=== PATIENT | male | born 1945 | race Caucasian/White ===

== ENCOUNTER 2018-10-27 05:37 | Day surgery (SDC) | payer MEDICARE ==
[2018-10-26 11:23] VITALS: BMI 36.2
[2018-10-27 06:46] LABS: Anion Gap 14 mmol/L (10-20); BUN (Urea Nitrogen) 16 mg/dL (8.4-25.7); Calc. Creatinine Clearance 74 mL/min (70-130); Calcium 10.1 mg/dL (7.8-10.44); Carbon Dioxide 24 mmol/L (23-31); Chloride 106 mmol/L (98-107); Estimated GFR-MDRD 47; Glucose 140 mg/dL (83-110); Potassium 4.1 mmol/L (3.5-5.1); Sodium 140 mmol/L (136-145)
[2018-10-27] MEDS ORDERED: Midazolam HCl 2 mg/2 ml Vial ONE (07:26)
[2018-10-27] MEDS ORDERED: hydrALAZINE 20 MG/ML VIAL ONE (07:26)
[2018-10-27] MEDS ORDERED: Fentanyl 100 MCG/2 ML VIAL ONE (07:26)
[2018-10-27] MEDS ORDERED: Heparin 10,000 UNITS/1 ML VIAL ONE (08:14)
[2018-10-27] MEDS ORDERED: Iopamidol 370 76% 100 ML VIAL ONE (10:03)
== END 2018-10-27 11:26 | disposition home or self-care (01) ==
LOC: CCL 05:37
PROVIDERS: ATTEND Internal Medicine Cardiovascular Disease
PROC: 4A023N7 Measurement of Cardiac Sampling and Pressure, Left Heart, Percutaneous Approach (ICD-10-PCS; principal; 2018-10-27)
PROC: B2111ZZ Fluoroscopy of Multiple Coronary Arteries using Low Osmolar Contrast (ICD-10-PCS; 2018-10-27)
DX: I25.10 Atherosclerotic heart disease of native coronary artery without angina pectoris (principal); I71.4 Abdominal aortic aneurysm, without rupture; I71.2 Thoracic aortic aneurysm, without rupture; I51.89 Other ill-defined heart diseases; I42.0 Dilated cardiomyopathy; E78.5 Hyperlipidemia, unspecified; J44.9 Chronic obstructive pulmonary disease, unspecified; I10 Essential (primary) hypertension; Z87.891 Personal history of nicotine dependence; Z79.02 Long term (current) use of antithrombotics/antiplatelets; Z79.899 Other long term (current) drug therapy
CPT/HCPCS: 75625; 80048; 93458; 99152; 99153; C1769; J0360; J1644; J2250; J3010; Q9967

== ENCOUNTER 2018-11-01 12:14 | Outpatient (CLI) | payer MEDICARE ==
[~2018-11-01 12:14] MED LIST: ISOVUE-370 76%-LOCM 1 ML ONE
--- NOTE | 2018-11-01 14:41 | CT ---
CT CHEST WITHOUT CONTRAST CT ANGIOGRAM OF THE CHEST WITH CONTRAST: HISTORY: Aortic aneurysm. COMPARISON: Chest radiograph 05/19/2018. FINDINGS: Initially, a CT of the chest was performed without contrast. Subsequently, a CT angiogram of the craig st was performed after the intravenous administration of contrast. The ascending aorta is without an eurysmal dilatation. The transverse aorta is without aneurysmal dilatation. No intracranial hematom a is appreciated. The descending thoracic aorta measures up to 3.7 cm at the level of T10. Just above the diaphragmati c hiatus at T11, there is a focal sacular aneurysm containing plaque with the aorta measuring 4.6 cm. There is extensive plaque throughout the descending thoracic aorta with ulcerations and plaque. No dissection is appreciation. The celiac trunk and superior mesenteric arteries are patent. There is large volume plaque of the great vessels with 50% narrowing of the origin of the left subcla vian artery due to soft plaque. There is dilatation of the proximal 2 cm of the subclavian artery up to 1.8 cm from 2 cm due to aneurysmal dilatation of the subclavian artery. The pulmonary arteries are not dilated. There are calcified left hilar lymph nodes. No pericardial effusion. There is cholelithiasis. The adrenal glands are unremarkable. Sternum and manubrium are intact. No thoracic spine compression fracture. There is a large calcified granuloma along the left major fissure. Moderate emphysematous changes. No suspicious pulmonary nodule. No displaced rib fracture. IMPRESSION: 1. Extensive atherosclerotic plaque throughout the aorta with aneurysmal dilatation of the distal th oracic aorta as described. 2. Cholelithiasis. 3. 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 4. Moderate emphysematous changes. POS: MILTON
== END 2018-11-01 12:15 | disposition home or self-care (01) ==
LOC: BICCT 12:14
PROVIDERS: ATTEND Internal Medicine Cardiovascular Disease
DX: I71.2 Thoracic aortic aneurysm, without rupture (principal); J43.9 Emphysema, unspecified; I70.8 Atherosclerosis of other arteries; I72.8 Aneurysm of other specified arteries
CPT/HCPCS: 71275; Q9966

== ENCOUNTER 2018-11-28 00:15 | Outpatient (CLI) | payer MEDICARE ==
--- NOTE | 2018-11-29 21:14 | EKG ---
Test Reason : Blood Pressure : / mmHG Vent. Rate : 092 BPM Atrial Rate : 092 BPM P-R Int : 150 ms QRS Dur : 124 ms QT Int : 376 ms P-R-T Axes : 050 046 101 degrees QTc Int : 464 ms Normal sinus rhythm with sinus arrhythmia Left ventricular hypertrophy with QRS widening Inferior infarct , age undetermined Abnormal ECG No previous ECGs available Confirmed by REN REID, DR. Rasheed ([id number]) on 11/29/2018 9:13:56 PM Referred By: SAM Confirmed By:DR. Kathya MCCLURE MD
== END 2018-11-28 00:16 | disposition home or self-care (01) ==
LOC: LABBT 00:15
PROVIDERS: ATTEND Thoracic Surgery (Cardiothoracic Vascular Surgery)
DX: Z01.818 Encounter for other preprocedural examination (principal); I25.10 Atherosclerotic heart disease of native coronary artery without angina pectoris
CPT/HCPCS: 93005; 93010

== ENCOUNTER 2018-11-28 13:15 | Inpatient (IN) | payer MEDICARE ==
[2018-11-28 14:29] LABS: Hemoglobin 14.5 g/dL (14.0-18.0); Mean Corpuscular HGB CONC 33.2 g/dL (32.0-36.0); Mean Corpuscular Volume 90.4 fL (78.0-98.0); Mean Platelet Volume 7.5 fL (7.4-10.4); Platelet Count 233 thou/uL (130-400); RBC Distribution Width 12.7 % (11.5-14.5); Red Blood Cell (RBC) Count 4.84 mill/uL (4.70-6.10); White Blood Cell (WBC) Count 9.2 thou/uL (4.8-10.8)
[2018-11-28 14:39] LABS: Anion Gap 13 mmol/L (10-20); BUN (Urea Nitrogen) 14 mg/dL (8.4-25.7); Calc. Creatinine Clearance 0 mL/min (70-130); Calcium 9.9 mg/dL (7.8-10.44); Carbon Dioxide 23 mmol/L (23-31); Chloride 106 mmol/L (98-107); Estimated GFR-MDRD 43; Glucose 105 mg/dL (83-110); Potassium 4.1 mmol/L (3.5-5.1); Sodium 138 mmol/L (136-145)
[2018-11-30] MEDS ORDERED: Bupivacaine HCl 0.5%/Epinephrine 1:200,000/PF 30 ml Vial ONE ×2 (08:28→08:31)
[2018-11-30] MEDS ORDERED: Dexamethasone 4 mg/ml Vial ONE (08:28)
[2018-11-30] MEDS ORDERED: Dexamethasone 20 MG/5 ML VIAL ONE ×2 (08:31→16:05)
[2018-11-30] MEDS ORDERED: Albumin 5% 500 ML ONE (08:31)
[2018-11-30] MEDS ORDERED: Heparin 10,000 UNITS/1 ML VIAL 30,000 UNITS in Sodium Chloride 0.9% 1,000 ML FS SCH (08:45)
[2018-11-30] MEDS ORDERED: Fentanyl 250 MCG/5 ML VIAL ONE (09:42)
[2018-11-30] MEDS ORDERED: Midazolam HCl 5 mg/5 ml Vial ONE (09:42)
[2018-11-30] MEDS ORDERED: PHENYLEPHRINE-NS 100 MCG/ML 10 ML SYRINGE ONE ×2 (12:05→13:48)
[2018-11-30] MEDS ORDERED: Insulin Regular 300 UNITS/3 ML VIAL ONE (13:35)
[2018-11-30] MEDS ORDERED: Post-Op Insulin Drip Protocol IVPB ONE (14:12)
[2018-11-30] MEDS ORDERED: Hetastarch 6% 500 ML 500 ML IVPB PRN (14:12)
[2018-11-30] MEDS ORDERED: DOPamine 400 MG/D5W 250 ML 250 ML IVPB PRN (14:12)
[2018-11-30] MEDS ORDERED: Bisacodyl 10 MG SUPP PR PRN (14:12)
[2018-11-30] MEDS ORDERED: Nitroglycerin 50 MG/250 ML BOT 250 ML IVPB PRN (14:12)
[2018-11-30] MEDS ORDERED: HYDROcodone/Acetaminophen 5/325 mg Tablet PO PRN (14:12)
[2018-11-30] MEDS ORDERED: Morphine 4 MG/ML VIAL SLOW IVP PRN (14:12)
[2018-11-30] MEDS ORDERED: Acetaminophen 325 MG TAB PO PRN (14:12)
[2018-11-30] MEDS ORDERED: Mag-Al 1200 mg/1200 mg/30 ML UDCUP PO PRN (14:12)
[2018-11-30] MEDS ORDERED: Bisacodyl 5 MG TAB PO PRN (14:12)
[2018-11-30] MEDS ORDERED: Norepinephrine 8 MG/0.9% NS 250 ML IVPB PRN (14:12)
[2018-11-30] MEDS ORDERED: niCARdipine HCl 25 MG in Sodium Chloride 0.9% 250 ML 240 ML IVPB PRN (14:12)
[2018-11-30] MEDS ORDERED: hydrALAZINE 20 MG/ML VIAL SLOW IVP PRN (14:12)
[2018-11-30] MEDS ORDERED: Potassium Chloride 20 MEQ/100 ML PREMIX BAG IVPB PRN (14:12)
[2018-11-30] MEDS ORDERED: Fentanyl 100 MCG/2 ML VIAL SLOW IVP PRN ×2 (14:12)
[2018-11-30] MEDS ORDERED: Guaifenesin DM 100-10/5 ML UDCUP PO PRN (14:12)
[2018-11-30] MEDS ORDERED: Dextrose 5% in Water 1,000 ML IV PRN (14:33)
[2018-11-30] MEDS ORDERED: Dextrose 50% Abboject 50 ML SYRINGE SLOW IVP PRN (14:33)
[2018-11-30] MEDS ORDERED: HUMULIN R 100 UNITS in Sodium Chloride 0.9% 100 ML IVPB SCH (14:33)
[2018-11-30] MEDS: Sodium Chloride 0.9% 1,000 ML IV SCH (14:49)
[2018-11-30 14:51] LABS: PTT 25.8 SEC (22.9-36.1)
[2018-11-30 14:52] LABS: Hemoglobin 12.9 g/dL (14.0-18.0); INR-International Normal Ratio 1.4; Mean Corpuscular HGB CONC 31.6 g/dL (32.0-36.0); Mean Corpuscular Hemoglobin 29.1 pg (27.0-31.0); Mean Corpuscular Volume 92.2 fL (78.0-98.0); Mean Platelet Volume 7.2 fL (7.4-10.4); Platelet Count 190 thou/uL (130-400); Prothrombin Time 17.4 SEC (12.0-14.7); RBC Distribution Width 12.7 % (11.5-14.5); Red Blood Cell (RBC) Count 4.43 mill/uL (4.70-6.10); White Blood Cell (WBC) Count 22.4 thou/uL (4.8-10.8)
--- NOTE | 2018-11-30 14:52 | OP ---
DATE OF PROCEDURE: 11/30/2018 PREOPERATIVE DIAGNOSIS: Coronary artery disease. PROCEDURES PERFORMED: Coronary artery bypass graft x3, large left internal mammary artery to a 1.25 mm diseased left anterior descending, saphenous vein graft large to a 1.5 to 2 mm obtuse marginal, saphenous vein satisfactory to a 1.5 mm PDA. RIDES SUPERVISOR: Braden Maher MD TRANSFUSION: None. DESCRIPTION OF PROCEDURE: After adequate anesthesia had been obtained, the patient was prepped and draped. Saphenous vein was harvested initially with an endovascular technique by Dr. Maher and then converted to open. I performed a median sternotomy, harvesting the left internal mammary artery without entering the pleura. The patient was heparinized. The mammary divided distally and passed posterior to the thymus gland. Aorta was examined and felt to be rather firm, but a preoperative CT scan did not show significant aortic disease. Initial cannulation site with pursestring suture was abandoned due to plaque when the arteriotomy was begun. This was oversewn and second site chosen, where the cannula entered. The right atrium was cannulated and cardiopulmonary bypass instituted. The patient had a very large thick heart. The aorta was cross clamped and after a liter of cold blood cardioplegia, the OM was opened and the larger thickened saphenous vein was anastomosed here with a 7-0 Prolene suture. Following completion of this, attention was turned to the PDA, which was a better match for the vein and an end-to-side anastomosis completed here. Finally, the DOTSON was anastomosed to surprisingly poor LAD that accepted only a 1 mm probe distally. Following completion of this, flow was restored and a single anastomosis performed on the aortic root with the OM vein graft. The mauricio of this, the PDA graft was anastomosed and then the cross-clamp was removed. The patient was then fully rewarmed and weaned from cardiopulmonary bypass. The vessels were inspected for bleeding prior to weaning from bypass and a suture was required in the PDA distal anastomosis. Protamine was then given while cannulas were removed and the aortic cannulation site secured with a 4-0 Prolene suture. The saphenous vein graft to the OM was slightly long and placed slightly anterior and inferior to the pulmonary artery. The sternum was then reapproximated with a combination of #7 interrupted wire and zip ties. Vancomycin paste was used on the sternal edges, platelet rich blood and platelet poor plasma were utilized in the patient's subcutaneous tissue and skin were closed in layers. Job ID: [id number]
[2018-11-30 15:04] LABS: Anion Gap 12 mmol/L (10-20); BUN (Urea Nitrogen) 16 mg/dL (8.4-25.7); Calc. Creatinine Clearance 75 mL/min (70-130); Calcium 8.6 mg/dL (7.8-10.44); Carbon Dioxide 24 mmol/L (23-31); Chloride 108 mmol/L (98-107); Estimated GFR-MDRD 47; Glucose 179 mg/dL (83-110); Potassium 4.5 mmol/L (3.5-5.1); Sodium 139 mmol/L (136-145)
[2018-11-30 15:05] LABS: Actual Bicarbonate (HCO3a) 21.8 mEq/L (22-28); Base Excess (BEa) -5.4 mEq/L (-2.0 to +3.0); CO2 Tension 49.4 mmHg (35.0-45.0); Calcium, Ionized 1.15 mmol/L (1.12-1.30); Carboxyhemoglobin (COHb) 0.9 gm% (0.0-3.0); Hemoglobin (Hb) 13.8 g/dL (14.0-18.0); O2 Tension (PaO2) 86.9 mmHg (> 70.0); Potassium - ABG Lab 4.19 mmol/L (3.70-5.30); Puncture Site ALINE; pH, Arterial 7.26 (7.35-7.45)
[2018-11-30 15:15] LABS: Band 19 % (5-11); Eosinophils 2 % (0-10); Lymphocytes 2 % (21-51); MDiff Complete? YES; Monocytes 3 % (0-10); Neutrophil 74 % (42-75); Platelet Morphology Comment Appears Adequate
--- NOTE | 2018-11-30 15:58 | RAD ---
RADIOGRAPH CHEST 1 VIEW: Date: 11/30/18 Time: 2:38 p.m. HISTORY: 73-year-old male status post open heart surgery. COMPARISON: 05/19/18. FINDINGS: The following are new findings on the current study since the previous study: Endotracheal tube with distal tip in the mid thoracic trachea, sternotomy wires, right subclavian central vascular catheter with distal tip overlying upper portion of right atrium. No pulmonary edema or consolidation identifi ed. No pneumothorax. IMPRESSION: 1. Status post very recent open heart surgery. 2. Intubation and central vascular catheter placement. LIZZY [] POS: Amanda
[2018-11-30] MEDS ORDERED: Magnesium 5 GM/10 ML VIAL ONE (16:05)
[2018-11-30] MEDS ORDERED: Ondansetron PF 4 MG/2 ML Vial ONE (16:05)
[2018-11-30] MEDS ORDERED: PROPOFOL 200 MG/20 ML VIAL ONE (16:05)
[2018-11-30] MEDS ORDERED: Heparin 30,000 units/30 ml VIAL ONE (16:05)
[2018-11-30] MEDS ORDERED: Heparin 5,000 UNITS/ML VIAL ONE (16:05)
[2018-11-30] MEDS ORDERED: DOPamine 400 MG/10 ML VIAL ONE (16:05)
[2018-11-30] MEDS ORDERED: Aminocaproic Acid 5 GM/20 ML VIAL ONE (16:05)
[2018-11-30] MEDS ORDERED: Mannitol 12.5 GM/50 ML ONE (16:05)
[2018-11-30] MEDS ORDERED: Vecuronium 10 MG VIAL ONE (16:05)
[2018-11-30] MEDS ORDERED: Protamine Sulfate 250 MG/25 ML VIAL ONE (16:05)
[2018-11-30] MEDS ORDERED: Potassium Chloride 60 MEQ/30 ML VIAL ONE (16:05)
[2018-11-30] MEDS ORDERED: Calcium Chloride 1 GM/10 ML Abboject SYRINGE ONE (16:05)
[2018-11-30] MEDS: CEFAZOLIN 2 GM in Premix Bag 1 BAG IVPB SCH (16:05)
[2018-11-30] MEDS ORDERED: Cardioplegic Soln 1,000 ML BAG ONE (16:05)
[2018-11-30] MEDS ORDERED: Papaverine 60 MG/2 ML VIAL ONE (16:05)
[2018-11-30] MEDS ORDERED: Lidocaine 2% PF 100 mg/5 ml Syringe ONE (16:05)
[2018-11-30] MEDS ORDERED: Sodium Bicarb 50 MEQ/50 ML VIAL ONE (16:05)
[2018-11-30] MEDS ORDERED: Thrombin 5000 UNITS/5 ML VIAL ONE (16:05)
--- NOTE | 2018-11-30 16:55 | EKG ---
Test Reason : POST CABG Blood Pressure : / mmHG Vent. Rate : 092 BPM Atrial Rate : 092 BPM P-R Int : 176 ms QRS Dur : 130 ms QT Int : 418 ms P-R-T Axes : 040 064 053 degrees QTc Int : 516 ms Normal sinus rhythm Left ventricular hypertrophy with QRS widening Inferior infarct (cited on or before 28-NOV-2018) T wave abnormality, consider lateral ischemia Abnormal ECG When compared with ECG of 28-NOV-2018 13:55, No significant change was found Confirmed by REN REID, SKassie (4) on 11/30/2018 4:55:19 PM Referred By: ARIN Confirmed By:DR. Kathya MCCLURE MD
[2018-11-30] MEDS: Ondansetron PF 4 MG/2 ML Vial IVP PRN (17:54)
--- NOTE | 2018-11-30 19:11 | CON ---
DATE OF CONSULTATION: 11/30/2018 REASON FOR CONSULTATION: Status post CABG. HISTORY OF PRESENT ILLNESS: Mr. Corado is a pleasant 73-year-old white gentleman very well known to myself, who comes to the hospital for planned CABG. He saw me in the office earlier this year for worsening shortness of breath. He had stress testing and echo that showed reduced LV function. He underwent heart catheterization that showed multivessel disease. He was referred to Dr. Woodward, where he was eventually scheduled to have a bypass today. He had this earlier today. He had a CABG x3 with a DOTSON to an LAD, a saphenous vein to a large OM, and a saphenous vein to PDA. He did well. He currently is intubated and sedated, opening his eyes, coming out of anesthesia, holding his blood pressure. PAST MEDICAL HISTORY: 1. Hyperlipidemia. 2. COPD. 3. Hypertension. PAST SURGICAL HISTORY: 1. Tonsillectomy. 2. Appendectomy. 3. CABG as above. FAMILY HISTORY: Mother with cancer. Three siblings alive. Three brothers, one sister, two sons, one daughter, all healthy. SOCIAL HISTORY: Former smoker, quit about 12 months ago. No alcohol or drugs. ALLERGIES: NO KNOWN DRUG ALLERGIES. OUTPATIENT MEDICATIONS: Include: 1. Benadryl. 2. May. 3. Triamcinolone. 4. Breo Ellipta. 5. Incruse Ellipta. 6. Atorvastatin 40 mg q.h.s. 7. Carvedilol 12.5 mg b.i.d. 8. Entresto 24/26 b.i.d. 9. Plavix 75 mg a day. REVIEW OF SYSTEMS: Unobtainable as the patient is sedated and intubated. PHYSICAL EXAMINATION: VITAL SIGNS: Temperature 97.7, pulse 103, respiratory rate 16, saturating 100% on 50% FiO2, blood pressure 109/62. GENERAL: Sedated and intubated, starting to open up his eyes. HEENT: Normocephalic, atraumatic. NECK: Supple. LUNGS: Clear. CARDIOVASCULAR: S1 and S2. There is a three component rub consistent with his recent CABG. ABDOMEN: Soft. EXTREMITIES: 1+ edema. SKIN: Warm and dry. LABORATORY DATA: Laboratory work was reviewed. White count of 22, hemoglobin of 12.9, hematocrit 40, platelet count of 190. Coags were reviewed. ABG was reviewed. Chemistry was reviewed; creatinine 1.59 two days ago, now 1.46, actually better. ASSESSMENT AND PLAN: 1. Multivessel coronary artery disease, status post coronary artery bypass graft x3. 2. Chronic obstructive pulmonary disease. 3. Hypertension. 4. Hyperlipidemia. PLAN: 1. Continue postoperative care. 2. Continue supportive care for now, close to extubation most likely. 3. We will need aspirin and statin for life. 4. Beta-modesta and Entresto once blood pressure allow. 5. We will discuss with him and his family about possibly doing a LifeVest before discharge. Thank you for letting me to participate in the care of your patient. We will follow. Job ID: [id number]
[2018-11-30 20:33] LABS: Actual Bicarbonate (HCO3a) 22.2 mEq/L (22-28); Base Excess (BEa) -4.1 mEq/L (-2.0 to +3.0); CO2 Tension 45.3 mmHg (35.0-45.0); Calcium, Ionized 1.17 mmol/L (1.12-1.30); Carboxyhemoglobin (COHb) 1.2 gm% (0.0-3.0); Hemoglobin (Hb) 13.5 g/dL (14.0-18.0); O2 Tension (PaO2) 89.1 mmHg (> 70.0); Potassium - ABG Lab 4.24 mmol/L (3.70-5.30); pH, Arterial 7.31 (7.35-7.45)
[2018-11-30 20:34] LABS: Puncture Site ALINE
[2018-11-30 20:35] LABS: ALV-art Gradient 139.475 (0-20)
[2018-11-30] MEDS: Atorvastatin Calcium 40 MG TAB PO SCH (20:38)
[2018-11-30] MEDS: Famotidine/PF 20 mg/2ml Vial SLOW IVP SCH (20:38)
[2018-11-30 20:53] LABS: Potassium 4.2 mmol/L (3.5-5.1)
[2018-12-01] MEDS: CEFAZOLIN 2 GM in Premix Bag 1 BAG IVPB SCH ×2 (00:13→08:10)
[2018-12-01] MEDS: Sodium Chloride 0.9% 1,000 ML IV SCH ×3 (00:15→11:27)
[2018-12-01 04:25] LABS: #Lymphocytes 0.9 thou/uL (1.20-3.40); #Monocytes 0.9 thou/uL (0.11-0.59); #Neutrophils 15.2 thou/uL (1.40-6.50); %Eosinophils 0.1 % (0.0-10.0); %Monocytes 5.5 % (0.0-10.0); %Neutrophils 89.4 % (42.0-75.0); Hemoglobin 11.7 g/dL (14.0-18.0); Mean Corpuscular Hemoglobin 29.5 pg (27.0-31.0); Mean Platelet Volume 7.6 fL (7.4-10.4); Platelet Count 170 thou/uL (130-400); RBC Distribution Width 12.7 % (11.5-14.5); Red Blood Cell (RBC) Count 3.97 mill/uL (4.70-6.10)
[2018-12-01 04:42] LABS: Anion Gap 12 mmol/L (10-20); BUN (Urea Nitrogen) 15 mg/dL (8.4-25.7); Calc. Creatinine Clearance 83 mL/min (70-130); Calcium 8.1 mg/dL (7.8-10.44); Carbon Dioxide 22 mmol/L (23-31); Chloride 111 mmol/L (98-107); Estimated GFR-MDRD 50; Glucose 105 mg/dL (83-110); Potassium 4.5 mmol/L (3.5-5.1); Sodium 140 mmol/L (136-145)
[2018-12-01] MEDS: HYDROcodone/Acetaminophen 5/325 mg Tablet PO PRN ×4 (04:57→20:37)
--- NOTE | 2018-12-01 08:10 | RAD ---
PORTABLE CHEST: History: Post op open heart surgery. Comparison: 11-30-18 FINDINGS: Heart size is enlarged. There are post op sternotomy changes. Right subclavian line is in place. The lungs are clear of infiltrates. IMPRESSION: Stable exam. POS: MITLON
[2018-12-01] MEDS: Famotidine/PF 20 mg/2ml Vial SLOW IVP SCH ×2 (08:11→20:34)
[2018-12-01] MEDS ORDERED: Aspirin 325 MG TAB PO SCH (09:00)
--- NOTE | 2018-12-01 12:26 | PDOC.CTH ---
Cardiology Progress Note - Subjective He is doing well. Extubated now. Sore chest otherwise no new issues. Passing gas. No BM. - Objective Vital Signs Temp Pulse Resp Pulse Ox 12/01/18 08:00 100 12/01/18 07:20 99 12/01/18 07:18 103 H 18 99 12/01/18 07:00 98.7 F 12/01/18 06:00 99.5 F 12/01/18 05:00 99.5 F 12/01/18 04:00 99 F 12/01/18 03:00 98.6 F 12/01/18 02:59 100 12/01/18 02:00 99.7 F H 12/01/18 01:00 100.5 F H Weight 268 lb 15.423 oz 11/30/18 12/01/18 12/02/18 06:59 06:59 06:59 Intake Total 1408 170 Output Total 1795 310 Balance -387 -140 - Physical Examination General/Neuro: alert & oriented x3, NAD Neck: no JVD present Lungs: unlabored respirations Heart: RRR Abdomen: NT/ND Extremities: other: (no edema) - Telemetry Telemetry Rhythm: NSR - Labs Result Diagrams: 12/01/18 04:00 12/01/18 04:00 - Assessment/Plan 1. Multivessel CAD s/p CABG 2. Ischemic CM EF at 30-35% 3. COPD 4. HTN 5. HLP. PLAN: - Aspirin and statin for life. - Will start low dose Coreg - Entresto in next few days if blood pressure allows.
[2018-12-01] MEDS ORDERED: Sodium Chloride 0.45% 1,000 ML IV SCH (13:00)
--- NOTE | 2018-12-01 14:05 | CON ---
DATE OF CONSULTATION: 12/01/2018 SERVICE: Pulmonary Medicine. REASON FOR CONSULTATION: COPD/ICU. HISTORY OF PRESENT ILLNESS: The patient is a 73-year-old white male with past medical history significant for possible COPD. He recently had pulmonary function studies in the outpatient setting. We do not have those in the hospital. It is my understanding they were performed in clinic. The patient relates the Dr. Perry' s interpretation was that his COPD if he has, is not that bad. That being said, he is on Breo and Incruse Ellipta devices. He uses them as directed. He was in his usual state of health when he started having increasing shortness of breath and ultimately was discovered to have multivessel coronary artery disease requiring coronary bypass graft. He is currently postop day #1 from that procedure. He was uncomplicated. Afterwards, he was on dopamine for short period of time, but this was weaned. He extubated without difficulty. Currently, he denies having any shortness of breath or chest discomfort and other than some soreness, which is appropriate. He has a little bit of a cough, bringing up white phlegm. There is nothing of color to it. He did not have any fevers or chills overnight, nursing reports no events otherwise. PAST MEDICAL HISTORY: 1. Coronary artery disease. 2. Dyslipidemia. 3. Hypertension. 4. COPD, possible. PAST SURGICAL HISTORY: 1. Tonsillectomy. 2. Appendectomy. 3. Coronary bypass graft. FAMILY HISTORY: Noncontributory. SOCIAL HISTORY: He is a former smoker and quit a little over a year ago. Denies any alcohol or illicit drug use. Prior to quitting tobacco, he accrued a 50 pack-year history of smoking. He has no exposure to chemicals, dust, asbestos, or tuberculosis otherwise. ALLERGIES: NO KNOWN DRUG ALLERGIES. MEDICATIONS: List of the patient's inpatient medications were reviewed. No specific updates were made. REVIEW OF SYSTEMS: General, head, ears, eyes, nose, throat, cardiovascular, respiratory, GI, , musculoskeletal, neurologic, and skin is negative except as mentioned in HPI. PHYSICAL EXAMINATION: VITAL SIGNS: Afebrile currently with a T-max overnight of 100.5, pulse 106, blood pressure 149/89, respirations 33, saturation 99% on 2 L nasal cannula. GENERAL: The patient is awake and alert, in no apparent distress. LUNGS: There is really good air entry. I do not appreciate a prolonged expiratory phase. Certainly, there is no wheezing. Minimal dependent crackles are noted. No rhonchi appreciated. HEART: Normal rate and regular. ABDOMEN: Soft, nontender, nondistended. Bowel sounds are positive. MUSCULOSKELETAL: No cyanosis or clubbing. There is 1+ pitting in the bilateral lower extremities. NEUROLOGIC: Grossly nonfocal. LABORATORY DATA: WBC 17.0, hemoglobin 11.9, platelets 170,000. INR 1.4. PH 7.31, pCO2 of 45, pO2 of 89 shortly following a CPAP trial. Creatinine 1.39 and beautifully downtrending, BUN 15. Basic metabolic profile is otherwise unremarkable. Bicarb is 22, chloride 111, sodium 140. IMAGING STUDIES: Chest x-ray demonstrates sternotomy wires, which are new. Heart size is generous. That being said, I do not appreciate any significant pleural effusions. Right subclavian central venous catheter terminates in excellent position. Soft tissue attenuation accentuates some of the interstitial/lung markings. This film is slightly underpenetrated. ASSESSMENT: 1. Coronary artery disease, status post coronary artery bypass graft, postop day 1. 2. Acute hypoxic respiratory failure. 3. Chronic obstructive pulmonary disease, possible without acute exacerbation. DISCUSSION AND PLAN: The patient is doing absolutely wonderful in the postop period. He is going to talk to Dr. Perry about what inhalers he needs to continue moving forward. He was told that his inhalers are going to be consolidated. I can only imagine that means we are moving to [facility]. I will leave that to Mak and Dr. Perry to discuss together. We will continue our mobilization efforts through time. We will schedule DuoNeb q.6 hours and hold his home medications. We will look for any signs of COPD exacerbations, which do not currently exist, and if present, brief course of steroids will be entertained. Pulmonary Critical Care will continue to follow along. 70 minutes have been devoted to this patient in various activities. I personally reviewed all imaging studies and laboratory data noted within this document. For fifty percent of this time, I was interacting with the patient at the bedside or coordinating care with the care team. For the remainder of the time I was immediately available to the patient in the hospital unit. Job ID: [id number] [facility]
[2018-12-01 15:13] LABS: Actual Bicarbonate (HCO3a) 23.7 mEq/L (22-28); Analyzer IN Cardio OR; Base Excess (BEa) -2.6 mEq/L (-2.0 to +3.0); Calcium, Ionized 1.11 mmol/L (1.12-1.30); Carboxyhemoglobin (COHb) 0.3 gm% (0.0-3.0); Hemoglobin (Hb) 12.6 g/dL (14.0-18.0); Potassium - ABG Lab 3.98 mmol/L (3.70-5.30); pH, Arterial 7.32 (7.35-7.45)
[2018-12-01 15:13] LABS: Actual Bicarbonate (HCO3a) 22.4 mEq/L (22-28); Analyzer IN Cardio OR; Base Excess (BEa) -3.6 mEq/L (-2.0 to +3.0); Calcium, Ionized 1.11 mmol/L (1.12-1.30); Carboxyhemoglobin (COHb) 0.5 gm% (0.0-3.0); Hemoglobin (Hb) 12.4 g/dL (14.0-18.0); O2 Tension (PaO2) 142.5 mmHg (> 70.0); Potassium - ABG Lab 4.63 mmol/L (3.70-5.30); pH, Arterial 7.32 (7.35-7.45)
[2018-12-01 15:14] LABS: Actual Bicarbonate (HCO3a) 22.6 mEq/L (22-28); Analyzer IN Cardio OR; Base Excess (BEa) -1.5 mEq/L (-2.0 to +3.0); CO2 Tension 35.6 mmHg (35.0-45.0); Calcium, Ionized 0.95 mmol/L (1.12-1.30); Carboxyhemoglobin (COHb) 0.3 gm% (0.0-3.0); Hemoglobin (Hb) 9.7 g/dL (14.0-18.0); O2 Tension (PaO2) 397.9 mmHg (> 70.0); Potassium - ABG Lab 5.26 mmol/L (3.70-5.30); pH, Arterial 7.42 (7.35-7.45)
[2018-12-01 15:14] LABS: Actual Bicarbonate (HCO3v) 22 mEq/L (22-28); Analyzer IN Cardio OR; Base Excess -3.7 mEq/L (-2.0 to +3.0); Calcium, Ionized 0.95 mmol/L (1.16-1.32); Chloride (ABG LAB) 101 mmol/L (98-106); Hemoglobin (Hb) 9.7 g/dL (12.6-17.4); Potassium - ABG Lab 5.08 mmol/L (3.70-5.30); Sodium 127.9 mmol/L (133-146); pH (venous) 7.34 (7.32-7.43)
[2018-12-01 15:15] LABS: Actual Bicarbonate (HCO3a) 22.5 mEq/L (22-28); Analyzer IN Cardio OR; Base Excess (BEa) -2.5 mEq/L (-2.0 to +3.0); CO2 Tension 39.4 mmHg (35.0-45.0); Calcium, Ionized 0.98 mmol/L (1.12-1.30); Carboxyhemoglobin (COHb) 0.3 gm% (0.0-3.0); O2 Tension (PaO2) 440.5 mmHg (> 70.0); Potassium - ABG Lab 5.71 mmol/L (3.70-5.30); pH, Arterial 7.37 (7.35-7.45)
[2018-12-01 15:16] LABS: Puncture Site ALINE
[2018-12-01 15:16] LABS: Puncture Site ALINE
[2018-12-01 15:16] LABS: Actual Bicarbonate (HCO3a) 22.6 mEq/L (22-28); Analyzer IN Cardio OR; Base Excess (BEa) -3.3 mEq/L (-2.0 to +3.0); CO2 Tension 44.4 mmHg (35.0-45.0); Carboxyhemoglobin (COHb) 0.5 gm% (0.0-3.0); Hemoglobin (Hb) 10.9 g/dL (14.0-18.0); Potassium - ABG Lab 5.24 mmol/L (3.70-5.30); pH, Arterial 7.33 (7.35-7.45)
[2018-12-01 15:17] LABS: Puncture Site ALINE
[2018-12-01 15:17] LABS: Puncture Site ALINE
[2018-12-01 15:18] LABS: Puncture Site ALINE
[2018-12-01] MEDS: Insulin Regular 300 UNITS/3 ML VIAL SC PRN ×2 (18:26→20:34)
[2018-12-01] MEDS: Atorvastatin Calcium 40 MG TAB PO SCH (20:34)
[2018-12-01] MEDS ORDERED: Enoxaparin Sodium 40 MG/0.4 ML SYRINGE SC SCH (21:00)
[2018-12-02] MEDS: HYDROcodone/Acetaminophen 5/325 mg Tablet PO PRN (01:16)
[2018-12-02 04:44] LABS: Band 19 % (5-11); Hemoglobin 12.3 g/dL (14.0-18.0); Lymphocytes 10 % (21-51); MDiff Complete? YES; Mean Corpuscular HGB CONC 31.8 g/dL (32.0-36.0); Mean Corpuscular Volume 94.3 fL (78.0-98.0); Mean Platelet Volume 7.2 fL (7.4-10.4); Monocytes 6 % (0-10); Neutrophil 65 % (42-75); Platelet Count 191 thou/uL (130-400); Platelet Morphology Comment Appears Adequate; RBC Distribution Width 12.8 % (11.5-14.5); Red Blood Cell (RBC) Count 4.09 mill/uL (4.70-6.10); White Blood Cell (WBC) Count 20.1 thou/uL (4.8-10.8)
[2018-12-02 04:46] LABS: Anion Gap 8 mmol/L (10-20); BUN (Urea Nitrogen) 13 mg/dL (8.4-25.7); Calc. Creatinine Clearance 100 mL/min (70-130); Calcium 8.3 mg/dL (7.8-10.44); Carbon Dioxide 29 mmol/L (23-31); Chloride 103 mmol/L (98-107); Estimated GFR-MDRD 63; Glucose 136 mg/dL (83-110); Potassium 4.4 mmol/L (3.5-5.1); Sodium 136 mmol/L (136-145)
[2018-12-02] MEDS: Ondansetron PF 4 MG/2 ML Vial IVP PRN (05:00)
[2018-12-02] MEDS ORDERED: Amiodarone 150 MG, Admixture Fee 1 EACH in Dextrose 5% in Water 100 ML IVPB SCH (05:15)
[2018-12-02] MEDS: Amiodarone 450 MG, Admixture Fee 1 EACH in Dextrose 5% in Water 250 ML IVPB SCH ×2 (05:32→13:25)
[2018-12-02] MEDS ORDERED: Mag-Al 1200 mg/1200 mg/30 ML UDCUP PO PRN (06:36)
[2018-12-02] MEDS ORDERED: Acetaminophen 325 MG TAB PO PRN (06:36)
[2018-12-02] MEDS ORDERED: guaiFENesin/Dextromethorphan 10 ML UDCUP PO PRN (06:36)
[2018-12-02] MEDS ORDERED: Mineral Oil ENEMA PR PRN (06:36)
[2018-12-02] MEDS ORDERED: Nitroglycerin 0.4 MG TAB (25 Tab Bottle) SL PRN (06:36)
[2018-12-02] MEDS ORDERED: Milk Of Magnesia 30 ML UDCUP PO PRN (06:36)
[2018-12-02] MEDS ORDERED: Bisacodyl 5 MG TAB PO PRN (06:36)
[2018-12-02] MEDS: Potassium Chloride 10 MEQ TAB PO SCH ×2 (08:00→09:51)
[2018-12-02] MEDS: Ondansetron PF 4 MG/2 ML Vial SLOW IVP PRN ×2 (08:27→16:48)
[2018-12-02] MEDS ORDERED: Furosemide 40 MG TAB PO SCH (09:00)
--- NOTE | 2018-12-02 09:35 | RAD ---
CHEST 1 VIEW: INDICATION: Status post open heart surgery. COMPARISON: Prior exam dated 12/01/2018. FINDINGS: There is increased opacity within the right lower lobe suspicious for atelectasis. There is cardiome loyda and a right-sided subclavian central venous catheter. Midline sternotomy changes are similar-ap pearing. The left lung is relatively clear. There is a stable calcified granuloma in the left lower lobe. No acute osseous abnormality is evident. IMPRESSION: Increasing opacity right lung base may reflect subsegmental atelectasis. Developing pneumonia is not excluded. Continued followup is recommended. POS: TPC
[2018-12-02] MEDS: Famotidine 20 MG TAB PO SCH ×2 (09:51→20:20)
[2018-12-02] MEDS: Polyethylene Glycol 3350 17 GM Packet PO SCH (09:51)
[2018-12-02] MEDS: Aspirin 325 mg Enteric Coated Tablet PO SCH (09:51)
--- NOTE | 2018-12-02 11:25 | PRG ---
DATE OF SERVICE: 12/02/2018 INTERVAL HISTORY: The patient had a rough night. He was a little bit restless. This morning, he got out of the bed to the bedside commode. He had overwhelming fatigue and lack of energy associated with that. A little bit shortness of breath. There are no reports of hemodynamic instability. He ate yesterday, but this morning, he simply did not have any appetite and started having some hiccups. Otherwise, there has been minimal change to his condition. PHYSICAL EXAMINATION: VITAL SIGNS: Afebrile, pulse 102, blood pressure 143/75, respirations 22, and saturation is 92% on room air. GENERAL: The patient is awake and alert, in no apparent distress. LUNGS: Decreased air entry. There is no wheezing present. Dependent crackles are noted. HEART: Normal rate and regular. ABDOMEN: Soft, nontender, and nondistended. Bowel sounds are positive. MUSCULOSKELETAL: No cyanosis or clubbing. There are 1+ to 2+ pitting in the bilateral lower extremities. NEUROLOGIC: Grossly nonfocal. LABORATORY DATA: WBC 20.1, hemoglobin 12.3, and platelets 191,000. Band count is up trending to 19%. INR 1.4. Creatinine 1.14, continues to improve. Basic metabolic profile is otherwise unremarkable. IMAGING: Chest x-ray demonstrates consolidation in the right lower lobe, which is new and increasing in severity. Atelectasis really cannot be excluded. The left base is completely cut off. Cardiac silhouette obscures much of my view of my left lower lobe. This is a slightly underpenetrated film. Left-sided subclavian central venous catheter is in good position. Sternotomy wires are noted. ASSESSMENT: 1. Acute hypoxic respiratory failure. 2. Community-acquired pneumonia, suspected. 3. Chronic obstructive pulmonary disease, possible without acute exacerbation. 4. Coronary artery disease, status post coronary artery bypass graft, postop day #2. DISCUSSION AND PLAN: I will initiate the patient on antibiotics directed at aspiration related lung organisms. Since the patient is having increasing abdominal discomfort and an aversion for food, we will put him back on a clear liquid diet. We can once again advance this if he tolerates that well. We will continue our mobilization efforts and minimize narcotics through time. I will go ahead and get blood cultures x2 and urine specimen, though I do believe that if he has an infectious symptom, it is going to be in the lung given the new infiltrate there. He will need to remain in the ICU for the time being. Job ID: [id number]
[2018-12-02] MEDS: Bisacodyl 10 MG SUPP PR PRN (12:48)
[2018-12-02] MEDS: traMADol HCl 50 MG TAB PO PRN (15:51)
--- NOTE | 2018-12-02 16:13 | PDOC.CTH ---
Cardiology Progress Note - Subjective He had a BM today. Went into afib last night and was placed on an amiodarone drip. - Objective Vital Signs Temp Pulse Resp Pulse Ox 12/02/18 14:07 95 21 H 94 L 12/02/18 12:00 98.5 F 12/02/18 08:00 97.9 F 97 12/02/18 06:38 96 12/02/18 06:37 122 H 30 H 96 Weight 269 lb 10.005 oz 12/01/18 12/02/18 12/03/18 06:59 06:59 06:59 Intake Total 1408 2071.5 120 Output Total 1795 2135 313 Balance -387 -63.5 -193 - Physical Examination General/Neuro: alert & oriented x3, NAD Neck: no JVD present Lungs: unlabored respirations Heart: other: (irreg irreg) Abdomen: NT/ND Extremities: + edema B (1+) - Telemetry Telemetry Rhythm: Afib HR 90's. - Labs Result Diagrams: 12/02/18 04:05 12/02/18 04:05 - Assessment/Plan 1. Multivessel CAD s/p CABG 2. Ischemic CM EF at 30-35% 3. COPD 4. HTN 5. HLP. 6. Post op afib PLAN: - Aspirin and statin for life. - Continue Coreg - Entresto in next few days if blood pressure allows. - Amiodarone drip, switch to PO tomorrow. - May transfer to telemetry floor. - Will get echo before discharge to decided if he needs the lifevest before discharge.
[2018-12-02] MEDS: Amiodarone 200 MG TAB PO SCH (20:19)
[2018-12-02] MEDS: Senokot S 8.6-50 MG TAB PO SCH (20:20)
[2018-12-02] MEDS: Atorvastatin Calcium 40 MG TAB PO SCH (20:20)
[2018-12-03] MEDS: Amiodarone 450 MG, Admixture Fee 1 EACH in Dextrose 5% in Water 250 ML IVPB SCH (02:24)
[2018-12-03 04:42] LABS: #Lymphocytes 1.1 thou/uL (1.20-3.40); #Monocytes 1.1 thou/uL (0.11-0.59); #Neutrophils 14.9 thou/uL (1.40-6.50); %Eosinophils 0.1 % (0.0-10.0); %Lymphocytes 6.3 % (21.0-51.0); %Monocytes 6.6 % (0.0-10.0); Hemoglobin 11.7 g/dL (14.0-18.0); Mean Corpuscular HGB CONC 32.2 g/dL (32.0-36.0); Mean Corpuscular Hemoglobin 29.5 pg (27.0-31.0); Mean Corpuscular Volume 91.6 fL (78.0-98.0); Mean Platelet Volume 7.6 fL (7.4-10.4); Platelet Count 203 thou/uL (130-400); Red Blood Cell (RBC) Count 3.99 mill/uL (4.70-6.10); White Blood Cell (WBC) Count 17.1 thou/uL (4.8-10.8)
[2018-12-03 05:01] LABS: Anion Gap 9 mmol/L (10-20); BUN (Urea Nitrogen) 19 mg/dL (8.4-25.7); Calc. Creatinine Clearance 85 mL/min (70-130); Calcium 8.5 mg/dL (7.8-10.44); Carbon Dioxide 30 mmol/L (23-31); Chloride 99 mmol/L (98-107); Estimated GFR-MDRD 52; Glucose 151 mg/dL (83-110); Potassium 3.9 mmol/L (3.5-5.1); Sodium 134 mmol/L (136-145)
--- NOTE | 2018-12-03 08:01 | RAD ---
FRadiograph chest one view: 12/03/2018 4:19 AM HISTORY: 73-year-old male status post CABG. COMPARISON: 12/02/2018 4:47 AM FINDINGS: Sternotomy wires and right subclavian central line remain. Cardiomegaly. No pulmonary edema. Retrocar diac portion of left lower lobe poorly visualized with indistinctness of left hemidiaphragm. Supine i mage makes this insensitive to the detection of pneumothorax. The previously demonstrated subsegmenta l atelectasis at the right lung base has cleared. IMPRESSION: 1.) Interval resolution of the right basilar subsegmental atelectasis. 2) cardiomegaly without congestive heart failure.
--- NOTE | 2018-12-03 08:19 | RAD ---
FRadiograph abdomen one view: HISTORY: Abdominal distention in 73-year-old male FINDINGS: Moderately large amount of gas throughout the transverse colon. Moderate amount of gas in nondistende d ascending colon and descending colon, and in sigmoid colon. No gas-filled dilated small bowel loops or gastric distention. IMPRESSION: 1. Gas throughout the colon. 2. No convincing evidence of small bowel obstruction.
[2018-12-03] MEDS: Ondansetron PF 4 MG/2 ML Vial SLOW IVP PRN (09:03)
[2018-12-03] MEDS: Senokot S 8.6-50 MG TAB PO SCH (09:06)
[2018-12-03] MEDS: Potassium Chloride 10 MEQ TAB PO SCH (09:06)
[2018-12-03] MEDS: Polyethylene Glycol 3350 17 GM Packet PO SCH (09:06)
[2018-12-03] MEDS: Amiodarone 200 MG TAB PO SCH ×2 (09:07→21:11)
[2018-12-03] MEDS: Aspirin 325 mg Enteric Coated Tablet PO SCH (09:07)
[2018-12-03] MEDS: Famotidine 20 MG TAB PO SCH ×2 (09:07→21:11)
--- NOTE | 2018-12-03 09:08 | PDOC.CTH ---
Cardiology Progress Note - Objective Vital Signs Temp Pulse Resp Pulse Ox 12/03/18 08:15 100 12/03/18 08:13 137 H 34 H 100 12/03/18 04:00 98.2 F 12/03/18 00:32 122 H 19 95 12/03/18 00:00 97.9 F Weight 263 lb 14.293 oz 12/02/18 12/03/18 12/04/18 06:59 06:59 06:59 Intake Total 2071.5 1115 Output Total 2135 1474 Balance -63.5 -359 - Labs Result Diagrams: 12/03/18 04:34 12/03/18 04:34 - Assessment/Plan 1. Multivessel CAD s/p CABG 2. Ischemic CM EF at 30-35% 3. COPD 4. HTN 5. HLP. 6. Post op afib
[2018-12-03] MEDS ORDERED: Ipratropium Bromide 0.06% Nasal Inhaler 15ml NASAL SCH (10:15)
--- NOTE | 2018-12-03 10:44 | PRG ---
DATE OF SERVICE: 12/03/2018 SUBJECTIVE: Mr. Corado says he is nauseated. He was nauseated before antibiotics were started yesterday. He is afebrile. He was nauseated prior to admission. He appears to be in atrial flutter with heart rate of 137. OBJECTIVE: VITAL SIGNS: Respiratory rates in the 20s, oximetry is 100%, blood pressure 94/71. LUNGS: Clear. HEART: Regular rhythm. ABDOMEN: Soft. His abdomen is slightly distended, but it is nontender. EXTREMITIES: His feet are warm. LABORATORY DATA: Sodium 134, potassium 3.9, chloride 99, bicarb 30, BUN 19, and creatinine 1.34. White count 17.1, hemoglobin 11.7, and platelets 203,000. IMPRESSION: Nausea that has not resolved with discontinuation of hydrocodone last night. It was present before Levaquin started. Today's chest x-ray shows resolution of the infiltrate in his right middle lobe yesterday, so I suspect that was just a mucus plug. I will stop the Levaquin. Cultures drawn yesterday are negative so far. Urine cultures negative as well. We will place him on scopolamine patch and give him nasal ipratropium to see if this helps with his sinus drainage, which he feels is causing his nausea. We will continue to follow. Job ID: [id number]
[2018-12-03] MEDS ORDERED: Ondansetron ODT 8 MG TAB SL PRN (10:48)
[2018-12-03] MEDS: Scopolamine 1.5 mg/72 hour Patch TD SCH (11:54)
[2018-12-03] MEDS: DOBUTamine 500 mg/250 ml 250 ML IVPB SCH (18:51)
[2018-12-03] MEDS: Atorvastatin Calcium 40 MG TAB PO SCH (21:11)
[2018-12-03] MEDS: Ipratropium Bromide 0.06% Nasal Inhaler 15ml NASAL SCH (21:13)
[2018-12-04 05:27] LABS: #Eosinphils 0.1 thou/uL (0.0-0.7); #Lymphocytes 1.2 thou/uL (1.20-3.40); #Monocytes 0.9 thou/uL (0.11-0.59); #Neutrophils 11.1 thou/uL (1.40-6.50); %Basophils 0.1 % (0.0-1.0); %Eosinophils 0.5 % (0.0-10.0); %Lymphocytes 8.8 % (21.0-51.0); %Monocytes 6.5 % (0.0-10.0); Hemoglobin 11.1 g/dL (14.0-18.0); Mean Corpuscular HGB CONC 32.2 g/dL (32.0-36.0); Mean Corpuscular Hemoglobin 29.5 pg (27.0-31.0); Mean Corpuscular Volume 91.6 fL (78.0-98.0); Mean Platelet Volume 7.8 fL (7.4-10.4); Platelet Count 251 thou/uL (130-400); RBC Distribution Width 12.8 % (11.5-14.5); Red Blood Cell (RBC) Count 3.77 mill/uL (4.70-6.10); White Blood Cell (WBC) Count 13.2 thou/uL (4.8-10.8)
[2018-12-04 05:39] LABS: Anion Gap 11 mmol/L (10-20); BUN (Urea Nitrogen) 24 mg/dL (8.4-25.7); Calc. Creatinine Clearance 84 mL/min (70-130); Calcium 8.6 mg/dL (7.8-10.44); Carbon Dioxide 30 mmol/L (23-31); Chloride 99 mmol/L (98-107); Estimated GFR-MDRD 53; Glucose 138 mg/dL (83-110); Potassium 3.7 mmol/L (3.5-5.1); Sodium 136 mmol/L (136-145)
[2018-12-04] MEDS: DOBUTamine 500 mg/250 ml 250 ML IVPB SCH (09:07)
[2018-12-04] MEDS: Polyethylene Glycol 3350 17 GM Packet PO SCH (09:08)
[2018-12-04] MEDS: Potassium Chloride 10 MEQ TAB PO SCH (09:08)
[2018-12-04] MEDS: Amiodarone 200 MG TAB PO SCH ×2 (09:08→20:40)
[2018-12-04] MEDS: Famotidine 20 MG TAB PO SCH ×2 (09:08→21:40)
[2018-12-04] MEDS: Aspirin 325 mg Enteric Coated Tablet PO SCH (09:08)
[2018-12-04] MEDS: Ipratropium Bromide 0.06% Nasal Inhaler 15ml NASAL SCH (09:10)
[2018-12-04] MEDS: Bisacodyl 10 MG SUPP PR PRN (09:35)
--- NOTE | 2018-12-04 11:33 | PDOC.CTH ---
Cardiology Progress Note - Subjective Doing well. no complaints. In SR. On dobutrex - Objective Vital Signs Temp Pulse Resp Pulse Ox 12/04/18 07:01 100 12/04/18 07:00 102 H 15 100 12/04/18 04:00 98 F 12/04/18 00:00 98 F Weight 263 lb 10.766 oz 12/03/18 12/04/18 12/05/18 06:59 06:59 06:59 Intake Total 1115 1246 Output Total 1474 1075 Balance -359 171 - Physical Examination General/Neuro: alert & oriented x3, NAD Neck: carotid US brisk, no JVD present Lungs: CTA, unlabored respirations Heart: PMI normal, RRR Abdomen: NT/ND, soft Extremities: + femoral B - Labs Result Diagrams: 12/04/18 05:05 12/04/18 05:05 - Assessment/Plan 1. Multivessel CAD s/p CABG 2. Ischemic CM EF at 30-35% 3. COPD 4. HTN 5. HLP. 6. Post op afib Improving Stop dobutrex CPAP per Dr. Perry at night On amio IP and PT
--- NOTE | 2018-12-04 13:30 | PRG ---
DATE OF SERVICE: 12/04/2018 SUBJECTIVE: Zacarias Corado was evaluated while he is sleeping today and then after he has severe prolonged apneic spells. He is awake. OBJECTIVE: VITAL SIGNS: Blood pressure 115/65, heart rate is 105, respiratory rate 18 to 20, and oximetry is 100% on 2 L. LUNGS: Clear. HEART: Regular rhythm. S1 and S2 are normal. ABDOMEN: Soft. EXTREMITIES: Without asymmetry or edema. Ejection fraction on echocardiogram is 50% to 55%. He is not complaining of nausea today. IMPRESSION: 1. Status post coronary artery bypass grafting, stable. 2. Transient infiltrate, that was most likely secondary to mucus plug. 3. Rhinitis induced nausea that I believe is improved. 4. Severe sleep apnea. I have recommended autotitrating CPAP when he is asleep. I would probably keep him in the ICU one more night just because of the autotitrating CPAP requirement. Job ID: [id number]
[2018-12-04] MEDS ORDERED: Nitroglycerin 0.4 MG TAB (25 Tab Bottle) SL PRN (20:30)
[2018-12-04] MEDS ORDERED: Bisacodyl 10 MG SUPP PR PRN (20:30)
[2018-12-04] MEDS ORDERED: Guaifenesin DM 100-10/5 ML UDCUP PO PRN (20:30)
[2018-12-04] MEDS ORDERED: Ondansetron PF 4 MG/2 ML Vial IVP PRN (20:30)
[2018-12-04] MEDS ORDERED: Mineral Oil ENEMA PR PRN (20:30)
[2018-12-04] MEDS ORDERED: Mag-Al 1200 mg/1200 mg/30 ML UDCUP PO PRN (20:30)
[2018-12-04] MEDS ORDERED: Bisacodyl 5 MG TAB PO PRN (20:30)
[2018-12-04] MEDS: Atorvastatin Calcium 40 MG TAB PO SCH (20:40)
[2018-12-04] MEDS: Acetaminophen 325 MG TAB PO PRN (21:40)
[2018-12-04] MEDS: Furosemide 40 MG TAB PO SCH (21:40)
[2018-12-05 04:10] LABS: Anion Gap 10 mmol/L (10-20); BUN (Urea Nitrogen) 21 mg/dL (8.4-25.7); Calc. Creatinine Clearance 89 mL/min (70-130); Calcium 8.3 mg/dL (7.8-10.44); Carbon Dioxide 33 mmol/L (23-31); Chloride 97 mmol/L (98-107); Estimated GFR-MDRD 56; Glucose 110 mg/dL (83-110); Potassium 3.4 mmol/L (3.5-5.1); Sodium 137 mmol/L (136-145)
[2018-12-05] MEDS: Potassium Chloride 10 MEQ TAB PO SCH (07:58)
[2018-12-05] MEDS ORDERED: Potassium Chloride 10 MEQ TAB PO SCH (08:00)
[2018-12-05] MEDS: Acetaminophen 325 MG TAB PO PRN (09:59)
[2018-12-05] MEDS: Famotidine 20 MG TAB PO SCH ×2 (09:59→20:06)
[2018-12-05] MEDS: Furosemide 40 MG TAB PO SCH ×2 (09:59→20:06)
[2018-12-05] MEDS: Aspirin 325 mg Enteric Coated Tablet PO SCH (10:00)
[2018-12-05] MEDS: Polyethylene Glycol 3350 17 GM Packet PO SCH ×2 (10:00→10:10)
[2018-12-05] MEDS: Metoprolol Tartrate 25 MG TAB PO SCH ×2 (10:00→20:06)
--- NOTE | 2018-12-05 13:37 | EKG ---
Test Reason : Blood Pressure : / mmHG Vent. Rate : 132 BPM Atrial Rate : 136 BPM P-R Int : 128 ms QRS Dur : 154 ms QT Int : 360 ms P-R-T Axes : 000 040 032 degrees QTc Int : 533 ms Sinus tachycardia Right bundle branch block Inferior infarct , age undetermined Abnormal ECG When compared with ECG of 02-DEC-2018 05:07, Sinus rhythm has replaced Atrial fibrillation Right bundle branch block is now Present Inferior infarct is now Present Confirmed by REN REID, DR. Rasheed ([id number]) on 12/05/2018 1:36:22 PM Referred By: Confirmed By:DR. Kathya MCCLURE MD
--- NOTE | 2018-12-05 18:26 | PDOC.CTH ---
Cardiology Progress Note - Subjective Remains in sinus, he has been wearing a BiPAP at night. - Objective Vital Signs Temp Pulse Pulse Pulse Resp BP BP 12/05/18 16:00 97.9 F 12/05/18 14:18 105 H 96 177/89 H 132/72 12/05/18 13:27 88 16 12/05/18 12:00 97.7 F 12/05/18 09:47 100 97 166/89 H 143/79 H 12/05/18 08:00 98.2 F 12/05/18 07:03 12/05/18 07:00 91 19 Pulse Ox Pulse Ox Pulse Ox 12/05/18 16:00 12/05/18 14:18 99 97 12/05/18 13:27 98 12/05/18 12:00 12/05/18 09:47 99 100 12/05/18 08:00 94 L 12/05/18 07:03 100 12/05/18 07:00 100 Weight 264 lb 12.403 oz 12/04/18 12/05/18 12/06/18 06:59 06:59 06:59 Intake Total 1246 938 820 Output Total 1075 2175 800 Balance 171 -1237 20 - Physical Examination General/Neuro: alert & oriented x3, NAD Neck: no JVD present Lungs: unlabored respirations Heart: RRR Abdomen: NT/ND Extremities: + edema B (1+) - Telemetry Telemetry Rhythm: NSR - Labs Result Diagrams: 12/04/18 05:05 12/05/18 03:30 - Assessment/Plan 1. Multivessel CAD s/p CABG 2. Ischemic CM EF at 30-35% 3. COPD 4. HTN 5. HLP. 6. Post op afib PLAN: - Aspirin and statin for life. - Continue Coreg - Entresto low dose to be started tomorrow. - Amiodarone PO load. - May transfer to telemetry floor. - Echo before discharge.
[2018-12-05] MEDS: Atorvastatin Calcium 40 MG TAB PO SCH (20:05)
[2018-12-06] MEDS ORDERED: Amiodarone 450 MG, Admixture Fee 1 EACH in Dextrose 5% in Water 250 ML IVPB SCH (07:30)
[2018-12-06] MEDS: cefTRIAXone\\ROCEPHIN 1 GM in Sodium Chloride 0.9% 100 ML IVPB SCH (08:10)
[2018-12-06] MEDS: Amiodarone 200 MG TAB PO SCH ×3 (08:11→21:02)
[2018-12-06] MEDS: Famotidine 20 MG TAB PO SCH ×2 (08:11→21:03)
[2018-12-06] MEDS: Aspirin 325 mg Enteric Coated Tablet PO SCH (08:11)
[2018-12-06] MEDS: Potassium Chloride 10 MEQ TAB PO SCH (08:11)
[2018-12-06] MEDS: Metoprolol Tartrate 25 MG TAB PO SCH ×2 (08:11→21:02)
[2018-12-06] MEDS: Furosemide 40 MG TAB PO SCH (08:12)
[2018-12-06] MEDS: Polyethylene Glycol 3350 17 GM Packet PO SCH (08:12)
[2018-12-06] MEDS: Scopolamine 1.5 mg/72 hour Patch TD SCH (18:57)
--- NOTE | 2018-12-06 19:53 | PDOC.CTH ---
Cardiology Progress Note - Subjective he went back into afib this morning. He is back in sinus now after he was placed on amiodarone drip again. Had an episode of confusion earlier today. - Objective Vital Signs Temp Pulse Pulse Pulse Pulse Resp BP 12/06/18 19:22 12/06/18 19:21 12/06/18 16:00 98.5 F 12/06/18 13:19 103 H 17 12/06/18 13:17 144 H 105 H 100 12/06/18 10:33 129 H 139 H 120/57 L 12/06/18 09:56 129 H 114 H 120/87 12/06/18 08:00 22 H BP BP Pulse Ox Pulse Ox Pulse Ox 12/06/18 19:22 95 12/06/18 19:21 95 12/06/18 16:00 12/06/18 13:19 96 12/06/18 13:17 107/76 133/83 95 94 L 12/06/18 10:33 98 12/06/18 09:56 125/60 12/06/18 08:00 98 Weight 256 lb 2.834 oz 12/05/18 12/06/18 12/07/18 06:59 06:59 06:59 Intake Total 938 1090 1231 Output Total 2175 2450 1100 Balance -1237 -1360 131 - Physical Examination General/Neuro: alert & oriented x3, NAD Neck: no JVD present Lungs: unlabored respirations Heart: RRR Abdomen: NT/ND Extremities: + edema B (1+) - Telemetry Telemetry Rhythm: Afib --> NSR - Labs Result Diagrams: 12/04/18 05:05 12/05/18 03:30 - Assessment/Plan 1. Multivessel CAD s/p CABG 2. Ischemic CM EF at 30-35% 3. COPD 4. HTN 5. HLP. 6. Post op afib 7. . PLAN: - Aspirin and statin for life. - Continue Coreg - Entresto low dose. - Amiodarone PO load now. - May transfer to telemetry floor. - Placement , will need inpatient PT.
[2018-12-06] MEDS: Atorvastatin Calcium 40 MG TAB PO SCH (21:02)
--- NOTE | 2018-12-06 22:32 | EKG ---
Test Reason : TACHYCARDIA Blood Pressure : / mmHG Vent. Rate : 119 BPM Atrial Rate : 111 BPM P-R Int : 000 ms QRS Dur : 146 ms QT Int : 436 ms P-R-T Axes : 000 059 029 degrees QTc Int : 613 ms Atrial fibrillation with rapid ventricular response with premature ventricular or aberrantly conducte d complexes Right bundle branch block Possible Inferior infarct (cited on or before 28-NOV-2018) Abnormal ECG When compared with ECG of 03-DEC-2018 12:14, Atrial fibrillation has replaced Sinus rhythm Serial changes of Inferior infarct Present Confirmed by Daniel MUNROE ([id number]) on 12/06/2018 10:31:31 PM Referred By: FAHAD Confirmed By:Daniel MUNROE
[2018-12-07] MEDS: cefTRIAXone\\ROCEPHIN 1 GM in Sodium Chloride 0.9% 100 ML IVPB SCH (06:20)
[2018-12-07] MEDS: Aspirin 325 mg Enteric Coated Tablet PO SCH (08:51)
[2018-12-07] MEDS: Amiodarone 200 MG TAB PO SCH ×3 (08:51→19:35)
[2018-12-07] MEDS: Potassium Chloride 10 MEQ TAB PO SCH (08:52)
[2018-12-07] MEDS: Famotidine 20 MG TAB PO SCH ×2 (08:52→20:45)
[2018-12-07] MEDS: Metoprolol Tartrate 25 MG TAB PO SCH ×2 (08:52→20:45)
[2018-12-07] MEDS: Polyethylene Glycol 3350 17 GM Packet PO SCH (08:54)
--- NOTE | 2018-12-07 18:58 | PDOC.CTH ---
Cardiology Progress Note - Subjective He gets very shortwinded with exertion. He was straining in the bathroom to have a BM and only passed gas but his HR went to the 140's sinus and he was very short winded. he has been walking with PT and felt well taking it slow. - Objective Vital Signs Temp Pulse Pulse Pulse Resp BP BP 12/07/18 18:41 125 H 16 12/07/18 15:10 97.8 F 95 14 12/07/18 14:01 102 H 100 167/79 H 133/88 12/07/18 12:25 98.1 F 97 16 12/07/18 11:58 95 18 12/07/18 09:35 107 H 107 H 147/69 H 160/90 H 12/07/18 07:55 12/07/18 07:13 97.7 F 98 20 BP BP Pulse Ox Pulse Ox Pulse Ox 12/07/18 18:41 93 L 12/07/18 15:10 136/63 97 12/07/18 14:01 92 L 92 L 12/07/18 12:25 138/61 94 L 12/07/18 11:58 96 12/07/18 09:35 12/07/18 07:55 96 12/07/18 07:13 114/58 L Weight 259 lb 2 oz 12/06/18 12/07/18 12/08/18 06:59 06:59 06:59 Intake Total 1090 1571 900 Output Total 2450 1800 600 Balance -1360 -229 300 - Physical Examination General/Neuro: alert & oriented x3, NAD Neck: no JVD present Lungs: unlabored respirations Heart: RRR Abdomen: NT/ND Extremities: + edema B (1+) - Telemetry Telemetry Rhythm: NSR - Labs Result Diagrams: 12/04/18 05:05 12/05/18 03:30 - Assessment/Plan 1. Multivessel CAD s/p CABG 2. Ischemic CM EF at 30-35% 3. COPD 4. HTN 5. HLP. 6. Post op afib 7. . PLAN: - Aspirin and statin for life. - Continue Coreg - Entresto low dose. - Amiodarone PO load now at 400 mg BID for 5 more days then 200 mg daily for total of 1 month. - Placement , will need inpatient PT versus SNF with PT. - Replace K. - Will place on Brovana and budesonide for his COPD and then back on outpatient regimen on discharge per pulmonary.
[2018-12-07] MEDS: Atorvastatin Calcium 40 MG TAB PO SCH (20:45)
[2018-12-07] MEDS: Amiodarone 450 MG, Admixture Fee 1 EACH in Dextrose 5% in Water 250 ML IVPB SCH (21:07)
[2018-12-08] MEDS: Amiodarone 450 MG, Admixture Fee 1 EACH in Dextrose 5% in Water 250 ML IVPB SCH ×2 (03:43→20:55)
[2018-12-08] MEDS: Budesonide 0.5 MG/2 ML NEB INH SCH ×2 (06:14→18:04)
[2018-12-08] MEDS: Arformoterol 15 MCG/2 ML NEB NEB SCH ×2 (06:16→18:05)
[2018-12-08] MEDS: cefTRIAXone\\ROCEPHIN 1 GM in Sodium Chloride 0.9% 100 ML IVPB SCH (09:22)
[2018-12-08] MEDS: Amiodarone 200 MG TAB PO SCH ×3 (09:23→20:56)
[2018-12-08] MEDS: Potassium Chloride 10 MEQ TAB PO SCH (09:23)
[2018-12-08] MEDS: Metoprolol Tartrate 25 MG TAB PO SCH ×2 (09:23→20:56)
[2018-12-08] MEDS: Aspirin 325 mg Enteric Coated Tablet PO SCH (09:23)
[2018-12-08] MEDS: Famotidine 20 MG TAB PO SCH ×2 (09:24→20:56)
[2018-12-08] MEDS: Polyethylene Glycol 3350 17 GM Packet PO SCH (09:25)
[2018-12-08 13:33] VITALS: BMI 36.3
--- NOTE | 2018-12-08 16:39 | PDOC.CTH ---
Cardiology Progress Note - Subjective He is more SOB today and sats in the low 90's, down to the upper 80's when he talks. - Objective Vital Signs Temp Pulse Pulse Pulse Resp BP BP 12/08/18 15:56 98.0 F 97 18 12/08/18 14:12 111 H 90 173/78 H 133/67 12/08/18 12:32 98.6 F 121 H 17 12/08/18 11:56 91 18 12/08/18 07:30 12/08/18 07:25 99.2 F 88 17 12/08/18 06:16 85 18 12/08/18 06:14 85 18 BP Pulse Ox Pulse Ox Pulse Ox 12/08/18 15:56 115/68 97 12/08/18 14:12 94 L 93 L 12/08/18 12:32 131/83 98 12/08/18 11:56 95 12/08/18 07:30 96 12/08/18 07:25 135/61 96 12/08/18 06:16 93 L 12/08/18 06:14 93 L Admit Weight 260 lb Weight 260 lb 3.2 oz 12/07/18 12/08/18 12/09/18 06:59 06:59 06:59 Intake Total 1571 1260 Output Total 1800 1300 Balance -229 -40 - Physical Examination General/Neuro: alert & oriented x3, NAD Neck: no JVD present Lungs: other: (Mild crackles. ) Heart: RRR Abdomen: NT/ND Extremities: + edema B (1+) - Telemetry Telemetry Rhythm: NSR - Labs Result Diagrams: 12/04/18 05:05 12/05/18 03:30 - Assessment/Plan 1. Multivessel CAD s/p CABG 2. Ischemic CM EF at 30-35% 3. COPD 4. HTN 5. HLP. 6. Post op afib 7. . PLAN: - Aspirin and statin for life. - Continue Coreg - Entresto low dose. - Will stop amiodarone. - Placement , will need inpatient PT versus SNF with PT. - Replace K. - Will place on Brovana and budesonide for his COPD and then back on outpatient regimen on discharge per pulmonary.
[2018-12-08] MEDS ORDERED: Potassium Chloride 20 MEQ TAB PO SCH (16:45)
[2018-12-08] MEDS ORDERED: Furosemide 40 MG/4 ML VIAL SLOW IVP SCH (16:45)
[2018-12-08] MEDS: Atorvastatin Calcium 40 MG TAB PO SCH (20:56)
[2018-12-09] MEDS: Budesonide 0.5 MG/2 ML NEB INH SCH ×2 (06:30→18:42)
[2018-12-09] MEDS: Arformoterol 15 MCG/2 ML NEB NEB SCH ×2 (06:32→18:42)
--- NOTE | 2018-12-09 08:23 | RAD ---
RADIOGRAPH CHEST 1 VIEW: Date: 12/09/2018. Time: 8:07 a.m. HISTORY: A 73-year-old male with congestive heart failure. COMPARISON: 12/03/2018. FINDINGS: New finding of opacification of most of the left lower lobe. Again noted is the cardiomegaly. No pu lmonary edema. Right lung is relatively clear. Right subclavian central line remains. No pneumotho rax. Sternotomy wires. IMPRESSION: 1. Interval worsening of aeration of the left lower lobe, with either atelectasis or pneumonia, and possible left pleural effusion. 2. No pulmonary edema. 3. Cardiomegaly. LIZZY [] POS: Amanda
[2018-12-09] MEDS: Metoprolol Tartrate 25 MG TAB PO SCH ×2 (08:56→20:43)
[2018-12-09] MEDS: Amiodarone 200 MG TAB PO SCH ×3 (08:56→20:42)
[2018-12-09] MEDS: Aspirin 325 mg Enteric Coated Tablet PO SCH (08:57)
[2018-12-09] MEDS: Famotidine 20 MG TAB PO SCH ×2 (08:57→20:43)
[2018-12-09] MEDS: Polyethylene Glycol 3350 17 GM Packet PO SCH (08:57)
[2018-12-09] MEDS: cefTRIAXone\\ROCEPHIN 1 GM in Sodium Chloride 0.9% 100 ML IVPB SCH (09:01)
--- NOTE | 2018-12-09 10:11 | PRG ---
DATE OF SERVICE: 12/09/2018 SUBJECTIVE: Zacarias Corado is doing reasonably well. OBJECTIVE: VITAL SIGNS: Heart rate is in the 90s, afebrile, respiratory rate is 20, oximetry is 93% on 2 L, blood pressure 159/65. LUNGS: Clear. HEART: Regular rhythm. ABDOMEN: Soft. DIAGNOSTIC DATA: Chest radiograph today reviewed by me shows no new infiltrates or pleural effusions. He continues on Brovana and budesonide and should continue on this when he goes to [facility]. He is on Rocephin. ASSESSMENT AND PLAN: Hypoxemia perioperatively. It is not surprising given his underlying chronic obstructive pulmonary disease and his cardiomyopathy. He does not have any clinical radiographic finding suggestive of cardiogenic pulmonary edema. Pulmonary function decreases significantly (up to 40%) after heart surgery, so I think with time, his gas exchange will improve and his pulmonary status. His inquired about code status and what she should tell the people at rehab. I believe since he just went through heart surgery, he should continue to be a full code. We will continue to follow while he is here and see him 1 to 2 weeks after he gets out of rehab. Job ID: [id number]
[2018-12-09] MEDS: Amiodarone 450 MG, Admixture Fee 1 EACH in Dextrose 5% in Water 250 ML IVPB SCH (12:56)
--- NOTE | 2018-12-09 16:41 | PDOC.CTH ---
Cardiology Progress Note - Subjective He is doing well. SOB has improved. Working with PT. - Objective Vital Signs Temp Pulse Pulse Pulse Resp BP BP 12/09/18 14:59 97.9 F 87 20 12/09/18 12:46 89 84 174/71 H 131/65 12/09/18 12:00 97.5 F L 91 16 12/09/18 11:44 92 20 12/09/18 08:00 97.9 F 88 16 12/09/18 06:32 99 20 12/09/18 06:30 99 20 BP BP Pulse Ox Pulse Ox Pulse Ox 12/09/18 14:59 145/68 H 99 12/09/18 12:46 91 L 96 12/09/18 12:00 156/86 H 97 12/09/18 11:44 94 L 12/09/18 08:00 135/71 97 12/09/18 06:32 93 L 12/09/18 06:30 93 L Admit Weight 260 lb Weight 257 lb 3 oz 12/08/18 12/09/18 12/10/18 06:59 06:59 06:59 Intake Total 1260 1180 480 Output Total 1300 1125 Balance -40 55 480 - Physical Examination General/Neuro: alert & oriented x3, NAD Neck: no JVD present Lungs: CTA, unlabored respirations Heart: RRR Abdomen: NT/ND Extremities: + edema B (1+) - Telemetry Telemetry Rhythm: NSR - Labs Result Diagrams: 12/04/18 05:05 12/05/18 03:30 - Assessment/Plan 1. Multivessel CAD s/p CABG 2. Ischemic CM EF at 30-35% 3. COPD 4. HTN 5. HLP. 6. Post op afib 7. Sunding. PLAN: - Aspirin and statin for life. - Continue Coreg - Entresto low dose. - Will do PP amiodarone load. - Placement , will need inpatient PT versus SNF with PT. - Replace K. - To swing bed tomorrow if remains stable.
[2018-12-09] MEDS: traMADol HCl 50 MG TAB PO PRN (20:42)
[2018-12-09] MEDS: Atorvastatin Calcium 40 MG TAB PO SCH (20:42)
[2018-12-10 06:21] LABS: Anion Gap 14 mmol/L (10-20); BUN (Urea Nitrogen) 20 mg/dL (8.4-25.7); Calc. Creatinine Clearance 69 mL/min (70-130); Calcium 8.5 mg/dL (7.8-10.44); Carbon Dioxide 30 mmol/L (23-31); Chloride 98 mmol/L (98-107); Estimated GFR-MDRD 44; Glucose 116 mg/dL (83-110); Potassium 3.8 mmol/L (3.5-5.1); Sodium 138 mmol/L (136-145)
[2018-12-10] MEDS: Budesonide 0.5 MG/2 ML NEB INH SCH ×2 (08:56→18:38)
[2018-12-10] MEDS: Arformoterol 15 MCG/2 ML NEB NEB SCH ×2 (09:12→18:38)
[2018-12-10] MEDS: Polyethylene Glycol 3350 17 GM Packet PO SCH (09:54)
[2018-12-10] MEDS: Amiodarone 200 MG TAB PO SCH ×3 (09:55→20:23)
[2018-12-10] MEDS: Metoprolol Tartrate 25 MG TAB PO SCH ×2 (09:55→20:24)
[2018-12-10] MEDS: Aspirin 325 mg Enteric Coated Tablet PO SCH (09:56)
[2018-12-10] MEDS: Famotidine 20 MG TAB PO SCH ×2 (09:56→20:24)
[2018-12-10] MEDS: traMADol HCl 50 MG TAB PO PRN (09:56)
[2018-12-10] MEDS: cefTRIAXone\\ROCEPHIN 1 GM in Sodium Chloride 0.9% 100 ML IVPB SCH (10:12)
--- NOTE | 2018-12-10 12:50 | PDOC.CTH ---
Cardiology Progress Note - Subjective The pt seen and examined. No overnight events. No cardiac complaints. - Objective Vital Signs Temp Pulse Resp BP BP Pulse Ox 12/10/18 09:12 100 18 12/10/18 09:01 92 L 12/10/18 08:56 100 20 12/10/18 08:20 98.7 F 115 H 20 124/81 95 12/10/18 04:00 98.6 F 97 20 146/61 H 92 L Admit Weight 260 lb Weight 257 lb 8 oz 12/09/18 12/10/18 12/11/18 06:59 06:59 06:59 Intake Total 1180 1920 Output Total 1125 1275 Balance 55 645 - Physical Examination General/Neuro: alert & oriented x3 Neck: no JVD present Lungs: other: (diminished at bases) Heart: other: (irregular) Abdomen: soft Extremities: other: (No edema) - Telemetry Telemetry Rhythm: Afib/Aflutter with BBB - Labs Result Diagrams: 12/04/18 05:05 12/10/18 05:33 - Assessment/Plan 1. Multivessel CAD s/p CABG on 12/06/2018 - stable; on Metoprolol 12.5mg BID, ASA 325mg qd, Lipitor 2. Ischemic CM EF at 30-35% - stable; on BBlocker, but no diuretic or ANGEL LUIS/ARB due to CAIN 3. COPD - stable 4. HTN - stable 5. HLP. on statin 6. Post op afib/Alutter - well controlled HR with Amiodarone 400mg TID since 04/2019; on ASA 325mg qd; May refer to EP for Aflutter tx. 7. . MAR reviewed * will start Entresto with low dose with stable Renal function Pt. seen and eval. by me. I agree with the A/P by the PRODUCT ARCHITECT. We have discussed the plan.Chest clear. RRR. Review of Systems - Review of Systems Constitutional: reports: no symptoms reported EENTM: reports: no symptoms reported Respiratory: reports: no symptoms reported Cardiac (ROS): reports: no symptoms reported ABD/GI: reports: no symptoms reported : reports: no symptoms reported Musculoskeletal: reports: no symptoms reported Skin: reports: no symptoms reported
--- NOTE | 2018-12-10 13:14 | PRG ---
DATE OF SERVICE: 12/10/2018 SUBJECTIVE: This morning, he is better. He is weak and less short of breath. OBJECTIVE: VITAL SIGNS: Saturations are 92% on 2 L, respiratory rate 18, temperature 98, blood pressure 120/48. CHEST: Decreased breath sounds. No wheezing. CARDIAC: Normal S1 and S2. No gallops. ABDOMEN: No masses. LABORATORY DATA: Creatinine 1.57. IMPRESSION: 1. Chronic obstructive pulmonary disease. 2. Congestive heart failure. 3. Cardiomyopathy. PLAN: Continue neb treatments, supportive care, PT. Job ID: [id number]
[2018-12-10] MEDS: Atorvastatin Calcium 40 MG TAB PO SCH (20:23)
[2018-12-11] MEDS: Acetaminophen 325 MG TAB PO PRN ×2 (02:48→13:35)
[2018-12-11] MEDS: Budesonide 0.5 MG/2 ML NEB INH SCH ×2 (07:44→19:10)
[2018-12-11] MEDS: Arformoterol 15 MCG/2 ML NEB NEB SCH ×2 (07:59→19:10)
[2018-12-11] MEDS: Aspirin 325 mg Enteric Coated Tablet PO SCH (08:27)
[2018-12-11] MEDS: Polyethylene Glycol 3350 17 GM Packet PO SCH (08:27)
[2018-12-11] MEDS: Metoprolol Tartrate 25 MG TAB PO SCH ×2 (08:27→20:32)
[2018-12-11] MEDS: Amiodarone 200 MG TAB PO SCH ×3 (08:27→20:32)
[2018-12-11] MEDS: Famotidine 20 MG TAB PO SCH ×2 (08:27→20:32)
--- NOTE | 2018-12-11 11:58 | PRG ---
DATE OF SERVICE: 12/11/2018 SUBJECTIVE: This morning, he is better. He is walking in the halls. OBJECTIVE: VITAL SIGNS: His saturations are 92% on 2L, temperature 97, pulse 70, respiratory rate 16, blood pressure 120/64. CHEST: Decreased breath sounds. No wheezing. CARDIAC: Normal S1 and S2. No gallops. ABDOMEN: No masses. ASSESSMENT: 1. Status post coronary artery bypass graft. 2. Respiratory failure. 3. Deconditioning. 4. Questionable left-sided pneumonia. PLAN: Switch over to oral antibiotics. PT and supportive care. We will follow. Job ID: [id number]
--- NOTE | 2018-12-11 16:50 | PDOC.CTH ---
Cardiology Progress Note - Subjective The pt seen and examined. No overnight events. No cardiac complaints. Per , the pt is more alerted today. - Objective Vital Signs Temp Pulse Pulse Pulse Resp BP BP 12/11/18 14:45 98.6 F 72 20 12/11/18 13:43 86 16 12/11/18 11:30 75 69 143/76 H 154/67 H 12/11/18 08:52 101 H 77 144/77 H 129/64 12/11/18 07:59 78 16 12/11/18 07:46 12/11/18 07:44 78 16 12/11/18 07:30 97.8 F 78 20 BP BP Pulse Ox 12/11/18 14:45 137/64 92 L 12/11/18 13:43 12/11/18 11:30 12/11/18 08:52 12/11/18 07:59 12/11/18 07:46 93 L 12/11/18 07:44 12/11/18 07:30 138/65 98 Admit Weight 260 lb Weight 258 lb 9 oz 12/10/18 12/11/18 12/12/18 06:59 06:59 06:59 Intake Total 1920 200 Output Total 1275 225 Balance 645 -25 - Physical Examination General/Neuro: alert & oriented x3 Neck: no JVD present Lungs: other: (diminished at bases) Heart: RRR Abdomen: soft Extremities: other: (generalized edema) - Telemetry Telemetry Rhythm: SR - Labs Result Diagrams: 12/04/18 05:05 12/10/18 05:33 - Assessment/Plan 1. Multivessel CAD s/p CABG on 12/06/2018 - stable; on Metoprolol 12.5mg BID, ASA 325mg qd, Lipitor 2. Ischemic CM EF at 30-35% - stable; on BBlocker, but no diuretic or ANGEL LUIS/ARB due to CAIN 3. COPD - stable 4. HTN - stable 5. HLP. on statin 6. Post op afib/Alutter - remains in SR with Amiodarone 400mg TID since 2018; on ASA 325mg qd for now due to s/p CABG on 12/06/2018; May refer to EP for Aflutter tx. 7. . MAR reviewed * will start Entresto with low dose with stable Renal function * Dr Marquez's pt Pt. seen and eval. by me. I agree with the A/P by the SALON COORDINATOR Review of Systems - Review of Systems Constitutional: reports: no symptoms reported EENTM: reports: no symptoms reported Respiratory: reports: no symptoms reported Cardiac (ROS): reports: no symptoms reported ABD/GI: reports: no symptoms reported
[2018-12-11] MEDS: Cefdinir 300 MG CAP PO SCH (20:32)
[2018-12-11] MEDS: Atorvastatin Calcium 40 MG TAB PO SCH (20:32)
[2018-12-12] MEDS: Acetaminophen 325 MG TAB PO PRN (04:02)
[2018-12-12] MEDS: Arformoterol 15 MCG/2 ML NEB NEB SCH (07:17)
[2018-12-12] MEDS: Budesonide 0.5 MG/2 ML NEB INH SCH (07:17)
[2018-12-12] MEDS: cefTRIAXone\\ROCEPHIN 1 GM in Sodium Chloride 0.9% 100 ML IVPB SCH (07:21)
[2018-12-12] MEDS: Metoprolol Tartrate 25 MG TAB PO SCH (09:19)
[2018-12-12] MEDS: Amiodarone 200 MG TAB PO SCH ×2 (09:19→15:55)
[2018-12-12] MEDS: Cefdinir 300 MG CAP PO SCH (09:20)
[2018-12-12] MEDS: Famotidine 20 MG TAB PO SCH (09:20)
[2018-12-12] MEDS: Polyethylene Glycol 3350 17 GM Packet PO SCH (09:20)
[2018-12-12] MEDS: Aspirin 325 mg Enteric Coated Tablet PO SCH (09:20)
--- NOTE | 2018-12-12 12:36 | PDOC.CTH ---
Cardiology Progress Note - Subjective He is doing much better. No chest pain. Sore with coughing. - Objective Vital Signs Temp Pulse Pulse Pulse Resp BP BP 12/12/18 09:40 88 70 168/72 H 135/68 12/12/18 08:15 97.6 F 78 15 12/12/18 07:19 70 14 12/12/18 04:00 97.9 F 74 20 12/12/18 00:43 82 16 BP Pulse Ox Pulse Ox Pulse Ox 12/12/18 09:40 95 98 12/12/18 08:15 118/56 L 96 12/12/18 07:19 12/12/18 04:00 121/67 92 L 12/12/18 00:43 94 L Admit Weight 260 lb Weight 256 lb 9.6 oz 12/11/18 12/12/18 12/13/18 06:59 06:59 06:59 Intake Total 200 400 Output Total 225 225 Balance -25 175 - Physical Examination General/Neuro: alert & oriented x3, NAD Neck: no JVD present Lungs: unlabored respirations, other: (Reduced breath sounds. ) Heart: RRR Abdomen: NT/ND Extremities: + edema B (1+) - Telemetry Telemetry Rhythm: NSR - Labs Result Diagrams: 12/04/18 05:05 12/10/18 05:33 - Assessment/Plan 1. Multivessel CAD s/p CABG 2. Ischemic CM EF at 30-35%, improved now at 50-55% 3. COPD 4. HTN 5. HLP. 6. Post op afib 7. Sundowning. PLAN: - Aspirin and statin for life. - Continue Coreg - Entresto low dose. - Continue PO amiodarone load. - To swing bed at [facility] any time from cardiac perspective.
[2018-12-12 16:02] VITALS: BP 140/66; TEMP 98.5
--- NOTE | 2018-12-12 17:52 | DIS ---
DATE OF ADMISSION: 11/30/2018 DATE OF DISCHARGE: 12/12/2018 HOSPITAL COURSE: The patient was admitted on 11/30, where he underwent coronary artery bypass grafting to the LAD, OM, and PDA. Postoperatively, he had some pulmonary issues with wheezing and coughing and was seen by Pulmonary. He ultimately was treated with multiple inhalers and Omnicef. His pulmonary function gradually improved over the hospital course. However, he then developed paroxysmal atrial fibrillation. Ultimately it quieting down with amiodarone and beta blockers. He had an echocardiogram done while he was in the hospital showing an ejection fraction of 50% to 55%, which is much improved from his stress test that I believe estimated his ejection fraction at 20% to 25%. He did have some sternal wound drainage while in the ICU related to coughing and exaggerated respiratory efforts. However, this gradually diminished and ceased. He will be discharged to inpatient SNU with prescription for amiodarone and a tapering dose Coreg 3.125 b.i.d., Omnicef 300 p.o. b.i.d. He is not receiving any pain medicines. He is resuming his atorvastatin 40 a day, his inhalers as well as Entresto 24/ b.i.d. and an aspirin a day. He will follow up with me in about 2 weeks. Discharge and followup instructions have been given. Job ID: [id number]
== END 2018-12-12 17:10 | DRG 235 ==
LOC: SURG A 11-30 07:33 → CCU 11-30 14:28 → 2NO 12-06 22:19
PROVIDERS: ADMIT Thoracic Surgery (Cardiothoracic Vascular Surgery); ATTEND Thoracic Surgery (Cardiothoracic Vascular Surgery)
PROC: 02100Z9 Bypass Coronary Artery, One Artery from Left Internal Mammary, Open Approach (ICD-10-PCS; principal; 2018-11-30)
PROC: 021109W Bypass Coronary Artery, Two Arteries from Aorta with Autologous Venous Tissue, Open Approach (ICD-10-PCS; 2018-11-30)
PROC: 5A1221Z Performance of Cardiac Output, Continuous (ICD-10-PCS; 2018-11-30)
PROC: 5A09357 Assistance with Respiratory Ventilation, Less than 24 Consecutive Hours, Continuous Positive Airway Pressure (ICD-10-PCS; 2018-12-05)
DX: I25.10 Atherosclerotic heart disease of native coronary artery without angina pectoris (principal); J96.01 Acute respiratory failure with hypoxia; T17.890A Other foreign object in other parts of respiratory tract causing asphyxiation, initial encounter; F05 Delirium due to known physiological condition; I48.92 Unspecified atrial flutter; J44.9 Chronic obstructive pulmonary disease, unspecified; I48.0 Paroxysmal atrial fibrillation; I25.5 Ischemic cardiomyopathy; G47.30 Sleep apnea, unspecified; E78.2 Mixed hyperlipidemia; E78.5 Hyperlipidemia, unspecified; I10 Essential (primary) hypertension; Z87.891 Personal history of nicotine dependence; Z79.02 Long term (current) use of antithrombotics/antiplatelets; Z79.899 Other long term (current) drug therapy; X58.XXXA Exposure to other specified factors, initial encounter; Y92.230 Patient room in hospital as the place of occurrence of the external cause
CPT/HCPCS: 36415; 36416; 36430; 71045; 74018; 80048; 82805; 85025; 85027; 85610; 85730; 86850; 86900; 86901; 87040; 87086; 93005; 93010; 93306; 93798; 94002; 94640; 94660; J0282; J0670; J0690; J0696; J1100; J1250; J1265; J1642; J1644; J1650; J1815; J1940; J1956; J2001; J2150; J2250; J2270; J2405; J2440; J2704; J2720; J3010; J3370; J3475; J3480; J3490; J7050; J7070; J7620; J7626; P9045; S0017; S0028

== ENCOUNTER 2019-10-12 17:53 | Inpatient (IN) | payer MEDICARE ==
[2019-10-12 19:01] LABS: #Eosinphils 0.3 thou/uL (0.0-0.7); #Lymphocytes 2.1 thou/uL (1.20-3.40); #Monocytes 0.6 thou/uL (0.11-0.59); #Neutrophils 7.7 thou/uL (1.40-6.50); %Basophils 0.2 % (0.0-1.0); %Eosinophils 3.2 % (0.0-10.0); %Lymphocytes 19.7 % (21.0-51.0); %Monocytes 5.3 % (0.0-10.0); %Neutrophils 71.6 % (42.0-75.0); Hemoglobin 15.3 g/dL (14.0-18.0); Mean Corpuscular HGB CONC 32.7 g/dL (32.0-36.0); Mean Corpuscular Hemoglobin 29.9 pg (27.0-31.0); Mean Corpuscular Volume 91.4 fL (78.0-98.0); Mean Platelet Volume 7.4 fL (7.4-10.4); Platelet Count 262 thou/uL (130-400); RBC Distribution Width 13.3 % (11.5-14.5); Red Blood Cell (RBC) Count 5.13 mill/uL (4.70-6.10); White Blood Cell (WBC) Count 10.7 thou/uL (4.8-10.8)
--- NOTE | 2019-10-12 19:06 | RAD ---
Chest AP view INDICATION: Chest pain COMPARISON: December 09, 2018 FINDINGS: Lungs: The lungs are clear Cardiac silhouette: Stable cardiomegaly and post-CABG change Pulmonary vasculature: Normal Pleural spaces: No pleural effusion or pneumothorax is demonstrated. Upper abdomen: No abnormality seen. Osseous structures: No acute osseous abnormality. Additional findings: None. IMPRESSION: Stable cardiomegaly and post-CABG change.
[2019-10-12 19:22] LABS: ALT (SGPT) 22 U/L (8-55); AST (SGOT) 18 U/L (5-34); Albumin 4.5 g/dL (3.4-4.8); Alkaline Phosphatase 100 U/L (40-110); Anion Gap 15 mmol/L (10-20); BUN (Urea Nitrogen) 16 mg/dL (8.4-25.7); Bilirubin, Total 0.8 mg/dL (0.2-1.2); CK (CPK) 126 U/L (30-200); Calc. Creatinine Clearance 0 mL/min (70-130); Calcium 9.5 mg/dL (7.8-10.44); Carbon Dioxide 25 mmol/L (23-31); Chloride 104 mmol/L (98-107); Estimated GFR-MDRD 37; Globulin 2.9 g/dL (2.4-3.5); Glucose 121 mg/dL (83-110); Magnesium 1.8 mg/dL (1.6-2.6); Protein, Total 7.4 g/dL (5.8-8.1); Sodium 140 mmol/L (136-145)
[2019-10-12 19:51] LABS: CKMB 2.3 ng/mL (0-6.6)
[2019-10-12] MEDS ORDERED: Acetaminophen 650 MG Suppository PR PRN (20:58)
[2019-10-12] MEDS ORDERED: Acetaminophen 325 MG TAB PO PRN (20:58)
--- NOTE | 2019-10-12 21:41 | HP ---
PRIMARY CARE PROVIDER: Dr. Giulia Mitchell. CHIEF COMPLAINT: Abnormal EKG. HISTORY OF PRESENT ILLNESS: Mr. Corado is a pleasant 74-year-old gentleman, who was seen at [facility] on October 12, 2019. He had coronary artery bypass graft in November 2018. His layaway clerk is Dr. Marquez and his CV surgeon is Dr. Woodward. About 6 days ago, he was seen in Cardiology Clinic. Today, he followed up with his primary care provider. He was found to have abnormal rhythm on his electrocardiogram. He was therefore referred to the emergency room. The patient denies chest pain, shortness of breath, fevers or chills, nausea, vomiting, or diarrhea. REVIEW OF SYSTEMS: All systems were reviewed and found to be negative except for the pertinent positives mentioned above. PAST MEDICAL HISTORY: Dyslipidemia, hypertension, coronary artery disease. PAST SURGICAL HISTORY: Coronary artery bypass graft, bilateral cataract surgery , appendectomy, and tonsillectomy. SOCIAL HISTORY: The patient quit smoking approximately 2 years ago. He drinks alcohol occasionally. He denies recreational drug use. FAMILY HISTORY: Significant for heart disease in his father. CODE STATUS: I discussed his code status. He is full code. ALLERGIES: NO KNOWN DRUG ALLERGIES. CURRENT MEDICATIONS: These need to be clarified. PHYSICAL EXAMINATION: GENERAL: On examination, Mr. Corado is awake and alert, not in acute distress. He is obese. VITAL SIGNS: Blood pressure is 114/71, pulse 88, respiratory rate 22, and oxygen saturation 94% on room air. He is afebrile. HEENT: Eyes, no scleral icterus, no conjunctival pallor. ENT: Moist mucosal membranes. No oropharyngeal erythema or exudates. NECK: Supple, nontender, trachea is midline. RESPIRATORY: Accessory muscles of breathing are not active. Chest wall movements are symmetric bilaterally. Lungs are clear to auscultation without wheeze, rhonchi, or crepitations. CARDIOVASCULAR: S1 and S2 are heard, irregular. Peripheral pulses palpable. ABDOMEN: Soft, distended, nontender, bowel sounds heard. NEUROLOGIC: Cranial nerves 2 through 12 are intact. MUSCULOSKELETAL: Power is 5/5 in all 4 extremities. SKIN: Bilateral lower extremity edema. LYMPHATIC: No cervical lymphadenopathy. PSYCHIATRIC: Normal mood, normal affect, patient is oriented to person, place, and time. LABORATORY DATA: Mr. Corado's labs and investigations were reviewed. I reviewed his electrocardiogram done at 1801 hours today, which shows atrial flutter with variable AV block. I also reviewed his electrocardiogram done at 1922 hours, which shows atrial flutter, heart rate has now decreased to 69 compared to 108 beats per minute on the prior EKG. I also reviewed his chest x-ray, which does not show any pulmonary infiltrates. He has an unremarkable CBC, elevated creatinine of 1.79, creatinine was 1.58 in June 2019, otherwise unremarkable comprehensive metabolic profile and indeterminate troponin I of 0.035. BNP is mildly elevated at 100.8. ASSESSMENT AND PLAN: Mr. Corado is a pleasant 74-year-old gentleman, who was seen at [facility] on October 12, 2019. His problem list includes: 1. Atrial flutter: Mr. Corado is presenting with atrial flutter. He received one-time dose of 20 mg Cardizem in the emergency room with improvement in his heart rate. He will be admitted to the hospital for telemetry monitoring. Cardiology Service and 2D echocardiogram being requested. 2. Chronic kidney disease stage 3. This appears to be stable. 3. Coronary artery disease. This appears to be stable as well. We will resume home medications once clarified. The patient will be started on therapeutic Lovenox while awaiting Cardiology Service input. 4. Hypertension: Resume home medications once clarified, monitor vital signs and titrate antihypertensives as needed. 5. Dyslipidemia. Continue statin once clarified. Many thanks for allowing me to participate in your patient's care. Please feel free to contact me with any questions or concerns. LEVEL OF RISK: High. LEVEL OF COMPLEXITY: High. Job ID: [id number] [facility]olly
[2019-10-12 23:55] VITALS: BMI 38.1
[2019-10-13] MEDS ORDERED: Enoxaparin Sodium 120 MG/0.8 ML SYRINGE SC SCH (00:30)
[2019-10-13 00:55] LABS: Troponin I 0.028 ng/mL (< 0.028)
[2019-10-13 04:32] LABS: #Basophils 0.1 thou/uL (0.0-0.2); #Eosinphils 0.4 thou/uL (0.0-0.7); #Lymphocytes 2.4 thou/uL (1.20-3.40); #Monocytes 0.7 thou/uL (0.11-0.59); #Neutrophils 6.1 thou/uL (1.40-6.50); %Basophils 0.5 % (0.0-1.0); %Eosinophils 4.2 % (0.0-10.0); %Lymphocytes 24.5 % (21.0-51.0); %Monocytes 6.9 % (0.0-10.0); %Neutrophils 63.8 % (42.0-75.0); Hemoglobin 14.3 g/dL (14.0-18.0); Mean Corpuscular HGB CONC 33.7 g/dL (32.0-36.0); Mean Corpuscular Hemoglobin 30.9 pg (27.0-31.0); Mean Corpuscular Volume 91.8 fL (78.0-98.0); Mean Platelet Volume 7.5 fL (7.4-10.4); Platelet Count 232 thou/uL (130-400); RBC Distribution Width 13.3 % (11.5-14.5); Red Blood Cell (RBC) Count 4.63 mill/uL (4.70-6.10); White Blood Cell (WBC) Count 9.6 thou/uL (4.8-10.8)
[2019-10-13 04:57] LABS: Anion Gap 13 mmol/L (10-20); BUN (Urea Nitrogen) 16 mg/dL (8.4-25.7); Calc. Creatinine Clearance 69 mL/min (70-130); Calcium 8.8 mg/dL (7.8-10.44); Carbon Dioxide 27 mmol/L (23-31); Chloride 105 mmol/L (98-107); Estimated GFR-MDRD 41; Glucose 143 mg/dL (83-110); Potassium 3.6 mmol/L (3.5-5.1); Sodium 141 mmol/L (136-145)
[2019-10-13] MEDS: Enoxaparin Sodium 120 MG/0.8 ML SYRINGE SC SCH ×2 (09:58→14:01)
[2019-10-13] MEDS ORDERED: Carvedilol 6.25 MG TAB PO SCH (11:45)
[2019-10-13] MEDS: Ipratropium Bromide 2.5 ml Neb NEB SCH ×2 (13:35→19:40)
--- NOTE | 2019-10-13 18:56 | PDOC.HOSPP ---
- Subjective Encounter Date: 10/13/19 Encounter Time: 18:55 Subjective: Pt seen for followup re: atrial flutter. No complaints. - Objective Vital Signs & Weight: Vital Signs (12 hours) Temp Pulse Resp BP BP Pulse Ox 10/13/19 16:10 97.7 F 93 16 112/64 93 L 10/13/19 13:58 96.2 F L 91 18 125/89 94 L 10/13/19 13:35 91 16 10/13/19 08:08 98.8 F 95 18 120/86 98 Weight Weight 273 lb 5.971 oz Result Diagrams: 10/13/19 03:57 10/13/19 03:57 Additional Labs: Labs and MARs reviewed by me EKG Reviewed by me: Yes (Tele: atrial flutter) Hospitalist ROS - Review of Systems Cardiovascular: denies: chest pain, palpitations, orthopnea, paroxysmal noc. dyspnea, edema, light headedness Gastrointestinal: denies: nausea, vomiting, abdominal pain, diarrhea, constipation, melena, hematochezia - Medication Medications: Active Medications Generic Name Dose Route Start Last Admin Trade Name Freq PRN Reason Stop Dose Admin Ipratropium [place] 2.5 ml 10/13/19 13:00 10/13/19 13:35 Atrovent NEB 2.5 ml [id number] TERRA Administration - Exam General - other findings: Obese Eye: anicteric sclera ENT: moist mucosa Neck: supple Heart: no rubs, irregular Respiratory: CTAB, no rales Gastrointestinal: soft, non-tender, normal bowel sounds, distended Musculoskeletal: no muscle wasting Psychiatric: normal affect, normal behavior Hosp A/P (1) Atrial flutter Code(s): I48.92 - UNSPECIFIED ATRIAL FLUTTER Status: Acute (2) CAD (coronary artery disease) Code(s): I25.10 - ATHSCL HEART DISEASE OF [place] CORONARY ARTERY W/O ANG PCTRS Status: Chronic - Plan discontinue Lovenox, start apixaban. Await 2D echo report/cardiology consult. Pt asymptomatic, likely home tomorrow. Pls note pt's aspirin tomorrow is the first one he will be receiving because it was discontinued for several months and he was asked yesterday by PCP to rsume. CAD stable.
[2019-10-13] MEDS: Mometasone/Formoterol 120 PUFF INHALER INH SCH (19:43)
--- NOTE | 2019-10-13 19:58 | CON ---
DATE OF CONSULTATION: 10/13/2019 REASON FOR CONSULTATION: Atrial flutter. PRIMARY ACCOUNTS RECEIVABLE ACCOUNTANT: Fermin Marquez MD HISTORY OF PRESENT ILLNESS: Mr. Corado is a very pleasant 74-year-old white gentleman, who comes to the hospital for palpitations. He seen his primary care doctor and was found to be in atrial flutter. He was referred to the [facility] ER, where he was admitted for after found to be in atrial flutter. Mr. Corado has had coronary artery bypass grafting in November [address] Woodward and myself. He developed postoperative atrial fibrillation, but had not had any issues since then. I saw him about one week ago, and he was doing just fine with normal heart rates. However, at his primary care doctor's, he was found to be in atrial flutter. Currently, he denies any chest pain, tightness, or pressure. No shortness of breath. PAST MEDICAL HISTORY: 1. Hyperlipidemia. 2. Hypertension. 3. Coronary artery disease, status post CABG as above. PAST SURGICAL HISTORY: 1. CABG less than a year ago. 2. Bilateral cataract surgery. 3. Appendectomy. 4. Tonsillectomy. SOCIAL HISTORY: Quit smoking two years ago. Alcohol uses social only. No drug use. FAMILY HISTORY: Father with heart disease. OUTPATIENT MEDICATIONS: Include, 1. Incruse Ellipta. 2. Aspirin 81. 3. Breo Ellipta. 4. Albuterol. 5. Rosuvastatin 10 mg nightly. 6. Carvedilol 6.25 b.i.d. 7. Entresto 24/26 p.o. b.i.d. ALLERGIES: NO KNOWN DRUG ALLERGIES. REVIEW OF SYSTEMS: A 12-point review of systems was done and was all negative unless stated in the history of present illness. PHYSICAL EXAMINATION: VITAL SIGNS: Temperature 97.7, pulse 93, respiratory rate 16, sat 93% on room air, and blood pressure 112/64. GENERAL: Awake, alert, and oriented x3, in no distress. HEENT: Normocephalic and atraumatic. NECK: Supple. LUNGS: Clear. CARDIOVASCULAR: S1 and S2. Heart rate in the 90s to 110s. Next, grade 2/6 systolic murmur at the right upper sternal border. ABDOMEN: Soft. Positive bowel sounds. EXTREMITIES: No edema. SKIN: Warm and dry. LABORATORY DATA: Laboratory work was reviewed. White count of 9.6, hemoglobin of 14, hematocrit 42, and platelet count of 232. Chemistries were unremarkable. Creatinine was 1.64, GFR of 41. Troponin was negative x3 with a BNP of 100. Telemetry was reviewed in atrial flutter with variable AV block, heart rate in the 90s to 110s. ASSESSMENT: 1. Atrial flutter, new onset. 2. Coronary artery disease, stable at this time. 3. Status post coronary artery bypass graft. PLAN: 1. Full anticoagulation with subcu Lovenox at this time. 2. May switch to Eliquis for p.o. anticoagulation. 3. We will consult Electrophysiology for consideration of typical flutter ablation. 4. We will keep in the hospital till Wednesday for consultation and possible ablation. Thank you for letting us to participate in the care of your patient. We will follow. Job ID: [id number]
[2019-10-13] MEDS: Apixaban 5 MG TAB PO SCH (21:28)
[2019-10-13] MEDS: Carvedilol 6.25 MG TAB PO SCH (21:28)
[2019-10-13] MEDS: Rosuvastatin 10 MG TAB PO SCH (21:28)
[2019-10-14] MEDS: Ipratropium Bromide 2.5 ml Neb NEB SCH ×4 (00:51→18:21)
[2019-10-14 03:59] LABS: Hemoglobin 14.6 g/dL (14.0-18.0); Platelet Count 208 thou/uL (130-400)
[2019-10-14] MEDS: Mometasone/Formoterol 120 PUFF INHALER INH SCH ×2 (07:24→18:23)
[2019-10-14] MEDS: Carvedilol 6.25 MG TAB PO SCH ×2 (08:41→21:23)
[2019-10-14] MEDS: Apixaban 5 MG TAB PO SCH (08:42)
[2019-10-14] MEDS: Aspirin 81 mg Enteric Coated Tablet PO SCH (08:43)
--- NOTE | 2019-10-14 13:30 | PDOC.HOSPP ---
- Subjective Encounter Date: 10/14/19 Encounter Time: 11:00 Subjective: no chest pain or sob or palpitations feels better this am - Objective Vital Signs & Weight: Vital Signs (12 hours) Temp Pulse Resp BP BP Pulse Ox 10/14/19 11:36 97.5 F L 100 19 112/59 L 94 L 10/14/19 08:00 96 10/14/19 07:59 98.8 F 90 19 118/74 96 10/14/19 07:24 94 16 10/14/19 07:19 96 10/14/19 07:17 94 16 10/14/19 04:00 98.3 F 92 18 145/69 H 99 Weight Weight 275 lb 6.4 oz Result Diagrams: 10/14/19 03:23 10/13/19 03:57 Hospitalist ROS - Medication Medications: Active Medications Generic Name Dose Route Start Last Admin Trade Name Freq PRN Reason Stop Dose Admin Apixaban 5 mg 10/13/19 21:00 10/14/19 08:42 Eliquis PO 5 mg BID TERRA Administration Aspirin 81 mg 10/14/19 09:00 10/14/19 08:43 Ecotrin PO 81 mg DAILY TERRA Administration Carvedilol 6.25 mg 10/13/19 21:00 10/14/19 08:41 Coreg PO 6.25 mg BID TERRA Administration Ipratropium [place] 2.5 ml 10/13/19 13:00 10/14/19 07:17 Atrovent NEB 2.5 ml [id number] TERRA Administration Mometasone Furoate/Formoterol Fumar 2 puff 10/13/19 18:30 10/14/19 07:24 Dulera 100 Mcg/5 Mcg Inhaler INH 2 puff BID-RT TERRA Administration Rosuvastatin Calcium 10 mg 10/13/19 21:00 10/13/19 21:28 Crestor PO 10 mg HS TERRA Administration Sacubitril/Valsartan 1 tab 10/13/19 21:00 10/14/19 08:43 Entresto 24 Mg-26 Mg Tablet PO 1 tab BID TERRA Administration - Exam General Appearance: awake alert Eye: PERRL, anicteric sclera ENT: no oropharyngeal lesions, moist mucosa Neck: supple, no JVD Heart: no murmur, irregular Respiratory: no wheezes, no rales, rhonchi Gastrointestinal: soft, non-tender, non-distended, normal bowel sounds Extremities: no cyanosis, 1+ LE edema Neurological: cranial nerve grossly intact, no focal deficits Psychiatric: normal affect, A&O x 3 Hosp A/P (1) Atrial flutter Code(s): I48.92 - UNSPECIFIED ATRIAL FLUTTER Status: Acute (2) CAD (coronary artery disease) Code(s): I25.10 - ATHSCL HEART DISEASE OF [place] CORONARY ARTERY W/O ANG PCTRS Status: Chronic Qualifiers: Coronary Disease-Associated Artery/Lesion type: bypass graft [place] vs. transplanted heart: [place] heart Associated angina: without angina Qualified Code(s): I25.810 - Atherosclerosis of coronary artery bypass graft(s) without angina pectoris (3) COPD (chronic obstructive pulmonary disease) Status: Chronic Qualifiers: COPD type: chronic bronchitis (4) HTN (hypertension) Code(s): I10 - ESSENTIAL (PRIMARY) HYPERTENSION Status: Chronic Qualifiers: Hypertension type: essential hypertension Qualified Code(s): I10 - Essential (primary) hypertension (5) Dyslipidemia Code(s): E78.5 - HYPERLIPIDEMIA, UNSPECIFIED Status: Chronic (6) Obesity (BMI 30-39.9) Code(s): E66.9 - OBESITY, UNSPECIFIED Status: Chronic - Plan is on asp, crestor, coreg, eliquis and entresto echo show ef of 50% with mod lvh for ablation on wednesday hold eliquis if ok with hemostable flutter is rate controlled on current meds.
--- NOTE | 2019-10-14 18:06 | PDOC.CPN ---
- Subjective Date: 10/14/19 Time: 14:45 Interval history: Feeling well. No angina no SOB. - Review of Systems General: denies: fever/chills, weight/appetite/sleep changes, night sweats, fatigue Respiratory: denies: cough, congestion, shortness of breath, exercise intolerance Cardiovascular: denies: chest pain, palpitation, edema, paroxysmal nocturnal dyspnea, orthopnea Gastrointestinal: denies: nausea, vomiting, diarrhea, constipation, abd pain, GI bleeding Musculoskeletal: denies: pain, tenderness, stiffness, swelling, arthritis/ arthralgias Neurological: denies: numbness, syncope, seizure, weakness - Objective Allergies/Adverse Reactions: Allergies Allergy/AdvReac Type Severity Reaction Status Date / Time No Known Allergies Allergy Verified 10/13/19 00:01 Visit Medications: Current Medications Acetaminophen (Tylenol) 650 mg PO Q4H PRN PRN Reason: Headache/Fever/Mild Pain (1-3) Acetaminophen (Tylenol) 650 mg [place] Q4H PRN PRN Reason: Headache/Fever/Mild Pain (1-3) Aspirin (Ecotrin) 81 mg PO DAILY [facility] Last Admin: 10/14/19 08:43 Dose: 81 mg Carvedilol (Coreg) 6.25 mg PO BID [facility] Last Admin: 10/14/19 08:41 Dose: 6.25 mg Ipratropium [place] (Atrovent) 2.5 ml NEB [id number] [facility] Last Admin: 10/14/19 13:34 Dose: 2.5 ml Mometasone Furoate/Formoterol Fumar (Dulera 100 Mcg/5 Mcg Inhaler) 2 puff INH BID-RT [facility] Last Admin: 10/14/19 07:24 Dose: 2 puff Rosuvastatin Calcium (Crestor) 10 mg PO HS [facility] Last Admin: 10/13/19 21:28 Dose: 10 mg Sacubitril/Valsartan (Entresto 24 Mg-26 Mg Tablet) 1 tab PO BID [facility] Last Admin: 10/14/19 08:43 Dose: 1 tab Vital Signs & Weight: Vital Signs Temp Pulse Resp BP BP Pulse Ox 10/14/19 15:45 98.3 F 101 H 19 113/73 96 10/14/19 13:34 80 16 10/14/19 11:36 97.5 F L 100 19 112/59 L 94 L 10/14/19 08:00 96 10/14/19 07:59 98.8 F 90 19 118/74 96 10/14/19 07:24 94 16 10/14/19 07:19 96 10/14/19 07:17 94 16 Weight 275 lb 6.4 oz - Physical Exam General: alert & oriented x3 HEENT: mucus membranes moist Neck: supple neck Cardiac: irregularly regular Lungs: clear to auscultation Neuro: grossly intact Abdomen: active bowel sounds Extremities: 1+ LE edema Skin: clear Musculoskeletal: no pain - Labs Result Diagrams: 10/14/19 03:23 10/13/19 03:57 Troponin/CKMB CK-MB (CK-2) 2.3 ng/mL (0-6.6) 10/12/19 18:27 Troponin I 0.028 ng/mL (< 0.028) 10/13/19 00:23 - Telemetry Supraventricular conduction: atrial flutter - Assessment/Plan Assessment/Plan: 1. Typical atrial flutter. 2. CAD, s/p CABG PLAN: - Full anticoagulation with Lovenox - Switch to Eliquis on discharge - EP consultation for consideration of an ablation.
[2019-10-14] MEDS: Enoxaparin Sodium 120 MG/0.8 ML SYRINGE SC SCH (21:23)
[2019-10-14] MEDS: Rosuvastatin 10 MG TAB PO SCH (21:23)
[2019-10-15] MEDS: Ipratropium Bromide 2.5 ml Neb NEB SCH ×4 (00:16→19:13)
[2019-10-15] MEDS: Mometasone/Formoterol 120 PUFF INHALER INH SCH ×2 (06:49→19:15)
[2019-10-15] MEDS: Carvedilol 6.25 MG TAB PO SCH ×2 (09:01→20:35)
[2019-10-15] MEDS: Aspirin 81 mg Enteric Coated Tablet PO SCH (09:01)
[2019-10-15] MEDS: Enoxaparin Sodium 120 MG/0.8 ML SYRINGE SC SCH ×2 (09:02→20:36)
--- NOTE | 2019-10-15 12:30 | PDOC.HOSPP ---
- Subjective Encounter Date: 10/15/19 Encounter Time: 11:00 Subjective: no sob or chest pain is ambulating and eating well - Objective Vital Signs & Weight: Vital Signs (12 hours) Temp Pulse Resp BP BP Pulse Ox 10/15/19 11:59 97.6 F 92 18 121/66 95 10/15/19 09:01 116/55 L 10/15/19 08:51 97.4 F L 92 16 116/55 L 96 10/15/19 06:49 95 16 10/15/19 06:44 95 10/15/19 06:42 95 16 10/15/19 04:00 97.6 F 91 22 H 142/71 H 95 Weight Weight 275 lb 6.4 oz Result Diagrams: 10/14/19 03:23 10/13/19 03:57 Hospitalist ROS - Medication Medications: Active Medications Generic Name Dose Route Start Last Admin Trade Name Freq PRN Reason Stop Dose Admin Aspirin 81 mg 10/14/19 09:00 10/15/19 09:01 Ecotrin PO 81 mg DAILY TERRA Administration Carvedilol 6.25 mg 10/13/19 21:00 10/15/19 09:01 Coreg PO 6.25 mg BID TERRA Administration Enoxaparin Sodium 120 mg 10/14/19 21:00 10/15/19 09:02 Lovenox [place] 120 mg 0900,2100 TERRA Administration Ipratropium [place] 2.5 ml 10/13/19 13:00 10/15/19 06:42 Atrovent NEB 2.5 ml [id number] TERRA Administration Mometasone Furoate/Formoterol Fumar 2 puff 10/13/19 18:30 10/15/19 06:49 Dulera 100 Mcg/5 Mcg Inhaler INH 2 puff BID-RT TERRA Administration Rosuvastatin Calcium 10 mg 10/13/19 21:00 10/14/19 21:23 Crestor PO 10 mg HS TERRA Administration Sacubitril/Valsartan 1 tab 10/13/19 21:00 10/15/19 09:10 Entresto 24 Mg-26 Mg Tablet PO 1 tab BID TERRA Administration - Exam General Appearance: awake alert Eye: PERRL, anicteric sclera ENT: no oropharyngeal lesions, moist mucosa Neck: supple, no JVD Heart: no murmur, irregular Respiratory: no wheezes, no rales Gastrointestinal: soft, non-tender, non-distended, normal bowel sounds Extremities: no cyanosis, no edema Neurological: cranial nerve grossly intact, no focal deficits Psychiatric: normal affect, A&O x 3 Hosp A/P (1) Atrial flutter Code(s): I48.92 - UNSPECIFIED ATRIAL FLUTTER Status: Acute (2) CAD (coronary artery disease) Code(s): I25.10 - ATHSCL HEART DISEASE OF [place] CORONARY ARTERY W/O ANG PCTRS Status: Chronic Qualifiers: Coronary Disease-Associated Artery/Lesion type: bypass graft [place] vs. transplanted heart: [place] heart Associated angina: without angina Qualified Code(s): I25.810 - Atherosclerosis of coronary artery bypass graft(s) without angina pectoris (3) COPD (chronic obstructive pulmonary disease) Status: Chronic Qualifiers: COPD type: chronic bronchitis (4) HTN (hypertension) Code(s): I10 - ESSENTIAL (PRIMARY) HYPERTENSION Status: Chronic Qualifiers: Hypertension type: essential hypertension Qualified Code(s): I10 - Essential (primary) hypertension (5) Dyslipidemia Code(s): E78.5 - HYPERLIPIDEMIA, UNSPECIFIED Status: Chronic (6) Obesity (BMI 30-39.9) Code(s): E66.9 - OBESITY, UNSPECIFIED Status: Chronic - Plan is on asp, crestor, coreg, lovenox and entresto echo show ef of 50% with mod lvh for ablation in am, npo after midnight, hold lovenox per advice either tonight or in am. hemostable flutter is rate controlled on current meds.
--- NOTE | 2019-10-15 17:03 | PDOC.CPN ---
- Subjective Date: 10/15/19 Time: 17:02 Interval history: No new issues. Remains in atrial flutter. - Review of Systems General: denies: fever/chills, weight/appetite/sleep changes, night sweats, fatigue Respiratory: denies: cough, congestion, shortness of breath, exercise intolerance Cardiovascular: denies: chest pain, palpitation, edema, paroxysmal nocturnal dyspnea, orthopnea Gastrointestinal: denies: nausea, vomiting, diarrhea, constipation, abd pain, GI bleeding Musculoskeletal: denies: pain, tenderness, stiffness, swelling, arthritis/ arthralgias Neurological: denies: numbness, syncope, seizure, weakness - Objective Allergies/Adverse Reactions: Allergies Allergy/AdvReac Type Severity Reaction Status Date / Time No Known Allergies Allergy Verified 10/13/19 00:01 Visit Medications: Current Medications Acetaminophen (Tylenol) 650 mg PO Q4H PRN PRN Reason: Headache/Fever/Mild Pain (1-3) Acetaminophen (Tylenol) 650 mg [place] Q4H PRN PRN Reason: Headache/Fever/Mild Pain (1-3) Aspirin (Ecotrin) 81 mg PO DAILY [facility] Last Admin: 10/15/19 09:01 Dose: 81 mg Carvedilol (Coreg) 6.25 mg PO BID [facility] Last Admin: 10/15/19 09:01 Dose: 6.25 mg Enoxaparin Sodium (Lovenox) 120 mg [place] 0900,2100 [facility] Last Admin: 10/15/19 09:02 Dose: 120 mg Ipratropium [place] (Atrovent) 2.5 ml NEB [id number] [facility] Last Admin: 10/15/19 13:55 Dose: 2.5 ml Mometasone Furoate/Formoterol Fumar (Dulera 100 Mcg/5 Mcg Inhaler) 2 puff INH BID-RT [facility] Last Admin: 10/15/19 06:49 Dose: 2 puff Rosuvastatin Calcium (Crestor) 10 mg PO HS [facility] Last Admin: 10/14/19 21:23 Dose: 10 mg Sacubitril/Valsartan (Entresto 24 Mg-26 Mg Tablet) 1 tab PO BID [facility] Last Admin: 10/15/19 09:10 Dose: 1 tab Sodium Chloride (Flush - Normal Saline) 10 ml IVF Q12HR [facility] Sodium Chloride (Flush - Normal Saline) 10 ml IVF PRN PRN PRN Reason: Saline Flush Vital Signs & Weight: Vital Signs Temp Pulse Resp BP BP Pulse Ox 10/15/19 15:40 110/61 10/15/19 15:19 99.4 F 94 13 96/52 L 95 10/15/19 13:55 106 H 14 10/15/19 11:59 97.6 F 92 18 121/66 95 10/15/19 09:01 116/55 L 10/15/19 08:51 97.4 F L 92 16 116/55 L 96 10/15/19 06:49 95 16 10/15/19 06:44 95 10/15/19 06:42 95 16 Weight 275 lb 6.4 oz - Physical Exam General: alert & oriented x3 HEENT: mucus membranes moist Neck: supple neck Cardiac: irregularly regular Lungs: clear to auscultation Neuro: grossly intact Abdomen: active bowel sounds Extremities: 1+ LE edema Skin: clear Musculoskeletal: no pain - Labs Result Diagrams: 10/14/19 03:23 10/13/19 03:57 Troponin/CKMB CK-MB (CK-2) 2.3 ng/mL (0-6.6) 10/12/19 18:27 Troponin I 0.028 ng/mL (< 0.028) 10/13/19 00:23 - Telemetry Supraventricular conduction: atrial flutter - Assessment/Plan Assessment/Plan: 1. Typical atrial flutter. 2. CAD, s/p CABG PLAN: - Full anticoagulation with Lovenox - Switch to Eliquis on discharge - EP consultation for consideration of an ablation.
[2019-10-15] MEDS: Rosuvastatin 10 MG TAB PO SCH (20:36)
[2019-10-16] MEDS: Ipratropium Bromide 2.5 ml Neb NEB SCH ×5 (00:05→23:09)
[2019-10-16 04:40] LABS: Hemoglobin 14.1 g/dL (14.0-18.0); Platelet Count 228 thou/uL (130-400)
[2019-10-16] MEDS: Aspirin 81 mg Enteric Coated Tablet PO SCH (08:21)
[2019-10-16] MEDS: Carvedilol 6.25 MG TAB PO SCH ×2 (08:21→20:18)
[2019-10-16] MEDS: Mometasone/Formoterol 120 PUFF INHALER INH SCH ×2 (08:35→19:11)
[2019-10-16] MEDS ORDERED: Heparin 10,000 UNITS/1 ML VIAL ONE (12:03)
[2019-10-16] MEDS ORDERED: Heparin (Artline) 500 ML ONE (12:04)
[2019-10-16] MEDS ORDERED: Lidocaine 1% (PF) 30 ML VIAL ONE (12:04)
--- NOTE | 2019-10-16 12:15 | PDOC.HOSPP ---
- Subjective Encounter Date: 10/16/19 Encounter Time: 10:00 Subjective: no sob or palp, is npo for ep studies - Objective Vital Signs & Weight: Vital Signs (12 hours) Temp Pulse Resp BP Pulse Ox 10/16/19 11:24 97.9 F 93 16 120/84 94 L 10/16/19 11:01 97.5 F L 93 16 120/72 96 10/16/19 08:35 92 17 10/16/19 08:34 92 17 10/16/19 07:25 98.6 F 88 16 113/59 L 95 10/16/19 02:59 98.8 F 97 20 136/74 95 Weight Weight 276 lb I&O: 10/15/19 10/16/19 10/17/19 06:59 06:59 06:59 Intake Total 1080 Output Total 1650 Balance -570 Result Diagrams: 10/16/19 03:36 10/13/19 03:57 Hospitalist ROS - Medication Medications: Active Medications Generic Name Dose Route Start Last Admin Trade Name [place] PRN Reason Stop Dose Admin Aspirin 81 mg 10/14/19 09:00 10/16/19 08:21 Ecotrin PO 81 mg DAILY TERRA Administration Carvedilol 6.25 mg 10/13/19 21:00 10/16/19 08:21 Coreg PO 6.25 mg BID TERRA Administration Ipratropium [place] 2.5 ml 10/13/19 13:00 10/16/19 08:34 Atrovent NEB 2.5 ml [id number] TERRA Administration Mometasone Furoate/Formoterol Fumar 2 puff 10/13/19 18:30 10/16/19 08:35 Dulera 100 Mcg/5 Mcg Inhaler INH 2 puff BID-RT TERRA Administration Rosuvastatin Calcium 10 mg 10/13/19 21:00 10/15/19 20:36 Crestor PO 10 mg HS TERRA Administration Sacubitril/Valsartan 1 tab 10/13/19 21:00 10/16/19 08:24 Entresto 24 Mg-26 Mg Tablet PO 1 tab BID TERRA Administration Sodium Chloride 10 ml 10/15/19 21:00 10/16/19 08:25 Flush - Normal Saline IVF Not Given Q12HR TERRA Sodium Chloride 10 ml 10/15/19 17:01 02/17/20 08:22 Flush - Normal Saline IVF 10 ml PRN PRN Administration Saline Flush - Exam General Appearance: awake alert Eye: PERRL, anicteric sclera ENT: no oropharyngeal lesions, moist mucosa Neck: supple, no JVD Heart: no murmur, irregular Respiratory: no wheezes, no rales, rhonchi Gastrointestinal: soft, non-tender, non-distended, normal bowel sounds Extremities: no cyanosis, no edema Neurological: cranial nerve grossly intact, no focal deficits Psychiatric: normal affect, A&O x 3 Hosp A/P (1) Atrial flutter Code(s): I48.92 - UNSPECIFIED ATRIAL FLUTTER Status: Acute (2) CAD (coronary artery disease) Code(s): I25.10 - ATHSCL HEART DISEASE OF [place] CORONARY ARTERY W/O ANG PCTRS Status: Chronic Qualifiers: Coronary Disease-Associated Artery/Lesion type: bypass graft [place] vs. transplanted heart: [place] heart Associated angina: without angina Qualified Code(s): I25.810 - Atherosclerosis of coronary artery bypass graft(s) without angina pectoris (3) COPD (chronic obstructive pulmonary disease) Status: Chronic Qualifiers: COPD type: chronic bronchitis (4) HTN (hypertension) Code(s): I10 - ESSENTIAL (PRIMARY) HYPERTENSION Status: Chronic Qualifiers: Hypertension type: essential hypertension Qualified Code(s): I10 - Essential (primary) hypertension (5) Dyslipidemia Code(s): E78.5 - HYPERLIPIDEMIA, UNSPECIFIED Status: Chronic (6) Obesity (BMI 30-39.9) Code(s): E66.9 - OBESITY, UNSPECIFIED Status: Chronic - Plan is on asp, crestor, coreg and entresto, will add eliquis/xarelto after procedure. echo show ef of 50% with mod lvh for ablation today by . hemostable flutter is rate controlled on current meds.
[2019-10-16] MEDS ORDERED: PROPOFOL 20 ML ONE (12:55)
[2019-10-16] MEDS ORDERED: Propofol 500 MG/50 ML VIAL ONE (13:08)
[2019-10-16] MEDS ORDERED: PHENYLEPHRINE-NS 100 MCG/ML 10 ML SYRINGE ONE (13:51)
--- NOTE | 2019-10-16 13:57 | PDOC.CPN ---
- Subjective Date: 10/16/19 Time: 13:56 Interval history: No new issues. Awaiting ablation procedure. - Review of Systems General: denies: fever/chills, weight/appetite/sleep changes, night sweats, fatigue Respiratory: denies: cough, congestion, shortness of breath, exercise intolerance Cardiovascular: denies: chest pain, palpitation, edema, paroxysmal nocturnal dyspnea, orthopnea Gastrointestinal: denies: nausea, vomiting, diarrhea, constipation, abd pain, GI bleeding Musculoskeletal: denies: pain, tenderness, stiffness, swelling, arthritis/ arthralgias Neurological: denies: numbness, syncope, seizure, weakness - Objective Allergies/Adverse Reactions: Allergies Allergy/AdvReac Type Severity Reaction Status Date / Time No Known Allergies Allergy Verified 10/13/19 00:01 Visit Medications: Current Medications Acetaminophen (Tylenol) 650 mg PO Q4H PRN PRN Reason: Headache/Fever/Mild Pain (1-3) Acetaminophen (Tylenol) 650 mg [place] Q4H PRN PRN Reason: Headache/Fever/Mild Pain (1-3) Aspirin (Ecotrin) 81 mg PO DAILY [facility] Last Admin: 10/16/19 08:21 Dose: 81 mg Carvedilol (Coreg) 6.25 mg PO BID [facility] Last Admin: 10/16/19 08:21 Dose: 6.25 mg Ipratropium [place] (Atrovent) 2.5 ml NEB [id number] [facility] Last Admin: 10/16/19 13:42 Dose: Not Given Mometasone Furoate/Formoterol Fumar (Dulera 100 Mcg/5 Mcg Inhaler) 2 puff INH BID-RT [facility] Last Admin: 10/16/19 08:35 Dose: 2 puff Rosuvastatin Calcium (Crestor) 10 mg PO HS [facility] Last Admin: 10/15/19 20:36 Dose: 10 mg Sacubitril/Valsartan (Entresto 24 Mg-26 Mg Tablet) 1 tab PO BID [facility] Last Admin: 10/16/19 08:24 Dose: 1 tab Sodium Chloride (Flush - Normal Saline) 10 ml IVF Q12HR [facility] Last Admin: 10/16/19 08:25 Dose: Not Given Sodium Chloride (Flush - Normal Saline) 10 ml IVF PRN PRN PRN Reason: Saline Flush Last Admin: 02/17/20 08:22 Dose: 10 ml Vital Signs & Weight: Vital Signs Temp Pulse Resp BP Pulse Ox 10/16/19 11:24 97.9 F 93 16 120/84 94 L 10/16/19 11:01 97.5 F L 93 16 120/72 96 10/16/19 08:35 92 17 10/16/19 08:34 92 17 10/16/19 07:25 98.6 F 88 16 113/59 L 95 10/16/19 02:59 98.8 F 97 20 136/74 95 Weight 276 lb - Physical Exam General: alert & oriented x3 HEENT: mucus membranes moist Neck: supple neck Cardiac: irregularly regular Lungs: clear to auscultation Neuro: grossly intact Abdomen: active bowel sounds Extremities: no edema Skin: clear Musculoskeletal: no pain - Labs Result Diagrams: 10/16/19 03:36 10/13/19 03:57 Troponin/CKMB CK-MB (CK-2) 2.3 ng/mL (0-6.6) 10/12/19 18:27 Troponin I 0.028 ng/mL (< 0.028) 10/13/19 00:23 - Telemetry Supraventricular conduction: atrial flutter - Assessment/Plan Assessment/Plan: 1. Typical atrial flutter. 2. CAD, s/p CABG PLAN: - Full anticoagulation with Lovenox - Switch to Eliquis at discharge - For flutter ablation today.
[2019-10-16] MEDS ORDERED: Phenylephrine HCL 10 MG/ML VIAL ONE ×2 (14:07→14:08)
[2019-10-16] MEDS ORDERED: DOPamine 400 MG/D5W 250 ML 250 ML ONE (14:35)
[2019-10-16] MEDS ORDERED: Ondansetron HCl/PF 4 MG/2 ML Vial IVP PRN (15:33)
[2019-10-16] MEDS ORDERED: Promethazine HCl 25 MG/ML VIAL IM PRN (15:33)
[2019-10-16] MEDS ORDERED: Promethazine HCl 25 MG/ML VIAL SLOW IVP PRN (15:33)
--- NOTE | 2019-10-16 17:22 | OP ---
DATE OF PROCEDURE: 10/16/2019 PROCEDURE PERFORMED: Electrophysiology study and radiofrequency ablation. REFERRING PHYSICIAN: Fermin Marquez MD REASON FOR PROCEDURE: Mr. Corado is a 74-year-old man with history of coronary artery bypass grafting and surgery and subsequent atrial fibrillation in November 2018. Transient amiodarone was discontinued in the past, but now returns with typical isthmus dependent atrial flutter. JERARDO prior to the procedure demonstrates no intracardiac clots. DESCRIPTION OF PROCEDURE: The patient received deep sedation by Anesthesia specialist. After adequate level of sedation achieved, the right femoral venous area was prepped, draped, and anesthetized with subcutaneous lidocaine and under ultrasound guidance two 8-Greek short sheaths were introduced. Through this, a ThermoCool SFST and a Decapolar catheter was advanced to the right atrium, right ventricle, HIS bundle, and CS positions. Pacing mapping and recording were performed including RV as well as pacing the left atrium via the CS. A 3D map of the right atrium was also obtained including His bundle, and CS positions. Following findings were noted. Baseline rhythm was atrial flutter with variable AV conduction with a flutter cycle length of 230 milliseconds. The atrial overdrive pacing at the cavotricuspid isthmus entering the tachycardia and the post pacing interval matched the tachycardia cycle length. Following that the cavotricuspid isthmus ablation was performed. A total of three lesions delivered at the location with total duration of 3 minute and 4 seconds at 40 olson. During the ablation, the flutter terminated and proximal CS pacing was initiated at that point. The transisthmus time increased up to 190 milliseconds with cavotricuspid isthmus block demonstrated by longest transisthmus time adjacent to the ablation line. Burst atrial flutter did not reinduce tachyarrhythmia. The EP study was also performed with the following numerical findings. Baseline cycle length 700 milliseconds, HV was 50 milliseconds. QRS was narrow. AV Wenckebach cycle was 430 milliseconds. RV Wenckebach cycle length was 280 millisecond. AV jacquelin ERP 600/400 milliseconds. The QRS measured 91 milliseconds, QTc 80 milliseconds, SC 176 milliseconds. HV interval did not change throughout this study. Burst atrial pacing at baseline and also on dopamine do not induce the atrial flutter. Also, the transisthmus time indicated persisting cavotricuspid isthmus block even on dopamine. CONCLUSION: 1. Typical isthmus-dependent atrial flutter at baseline. 2. Successful caval tricuspid isthmus ablation eliminated atrial flutter. PLAN: Monitor for recurrent arrhythmias, initiate transient anticoagulation for about a month. Job ID: [id number]
[2019-10-16] MEDS: Rosuvastatin 10 MG TAB PO SCH (20:14)
--- NOTE | 2019-10-16 21:17 | CON ---
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 His problems are: 1. Recurrent typical isthmus-dependent atrial flutter. a. Prior history of post CABG atrial fibrillation utilizing transient amiodarone. b. Recurrent admission with atypical atrial flutter. c. Status post coronary artery bypass grafting surgery with DOTSON to LAD, SVG to OM and PDA by Dr. Woodward in November 2018. 2. Coronary artery disease, ischemic cardiomyopathy. a. History of reduced LVEF of 20% to 25% and a stress test prior to bypass grafting surgery. b. Followup 2D echo on 10/13/2019 reveals LVEF 50% to 55%, moderate LVH, moderately dilated left atrium. 3. Elevated BMI. 4. Hypertension. ALLERGIES: NONE NOTED. MEDICATIONS: At home included: 1. Lipitor. 2. Albuterol. 3. Entresto. 4. Aspirin. 5. Fluticasone. 6. Carvedilol. 7. Losartan. SUBJECTIVE: Mr. Corado was admitted after being found in atrial flutter by his primary care physician. He had mild dyspnea and fatigue and denies angina, stroke-like symptoms, or bleeding issues. Rest of 12-point review of systems otherwise unremarkable. PAST MEDICAL HISTORY: As above. He also had history of bilateral cataract surgery, appendectomy, tonsillectomy. SOCIAL HISTORY: The patient denies smoking. Quit smoking about 2 years ago. He denies EtOH abuse, but does drink alcohol on occasion. Denies drug use. FAMILY HISTORY: Significant for heart disease in the father. OBJECTIVE DATA: VITAL SIGNS: Blood pressure is 120/84, heart rate 93, respirations 16, temperature 97.9 degrees Fahrenheit. GENERAL: Alert and oriented man, with elevated BMI, in no apparent distress. NECK: Supple. Jugular veins not distended. CHEST: Coarse without crackles. HEART: Sounds are regular, but tachycardic. No murmur or gallop. ABDOMEN: Benign. Bowel sounds positive. EXTREMITIES: Lower extremity without edema, clubbing, or cyanosis. Pulses are adequate. NEUROLOGIC: The patient is nonfocal. MUSCULOSKELETAL: No joint swelling or deformity. SKIN: Without rash. DATABASE: EKG is reviewed revealing typical isthmus-dependent atrial flutter with 2:1 AV conduction and on occasion 4:1 variable AV conduction. LABORATORY DATA: White cell count is 9.6, hemoglobin 14.3, platelet count is 232. Sodium 141, potassium 3.6, BUN is 16, creatinine 1.64. ASSESSMENT AND PLAN: Mr. Corado is a pleasant 74-year-old man with prior history of congestive heart failure, but improving left ventricular ejection fraction after his bypass grafting surgery. However, the transient atrial fibrillation postoperatively requiring transient amiodarone therapy back in November 2018. Now, he is off amiodarone and had a recurrence of atrial arrhythmias, but at this time appears to be typical isthmus-dependent atrial flutter. We had discussed the mechanism of atrial fibrillation and flutter with him in detail. He understands the potential benefit from cavotricuspid isthmus ablation. Hence, not being on anticoagulation. JERARDO prior to that would be recommended. Risks and benefits of procedure were detailed to him. He understands the chance of esophageal perforation, tamponade, bleeding, stroke recurrences. He is willing to proceed. We will schedule him for JERARDO and ablation procedure near date. In the meantime, continue beta-modesta therapy. Consider long-term anticoagulation at least for about a month unless recurrences occur. Job ID: [id number]
[2019-10-17] MEDS: Ipratropium Bromide 2.5 ml Neb NEB SCH (07:44)
[2019-10-17] MEDS: Mometasone/Formoterol 120 PUFF INHALER INH SCH (07:46)
[2019-10-17] MEDS ORDERED: Apixaban 5 MG TAB PO SCH (09:00)
[2019-10-17] MEDS: Aspirin 81 mg Enteric Coated Tablet PO SCH (09:05)
[2019-10-17] MEDS: Carvedilol 6.25 MG TAB PO SCH (09:06)
[2019-10-17 11:07] VITALS: BP 96/55; TEMP 98.1
--- NOTE | 2019-10-17 16:02 | PDOC.EP ---
- Subjective Date: 10/17/19 Time: 08:00 Interval History: follow up after EPS/ RFA on 10/16. Feels well. no bleeding at R groin site. no cardiac complaints. eager to go home - Review of Systems Constitutional: denies: chills, fever, malaise, sweats, weakness, other Respiratory: denies: cough, dry, hemoptysis, pleuritic pain, shortness of breath , SOB with excertion, sputum, wheezing, other Cardiology: denies: chest pain, edema, heart racing, light headedness, paroxysmal noc. dyspnea, orthopnea, palpitations, passing out, pleuritic pain, pressure, swelling, other Gastrointestinal: denies: abdominal pain, constipation, diarrhea, hematochezia, melena, nausea, vomitting, other - Objective Allergies/Adverse Reactions: Allergies Allergy/AdvReac Type Severity Reaction Status Date / Time No Known Allergies Allergy Verified 10/13/19 00:01 Vital Signs & Weight: Vital Signs Temp Pulse Resp BP BP BP BP 10/17/19 11:06 98.1 F 89 16 96/55 L 10/17/19 09:06 122/66 10/17/19 07:46 98.3 F 91 16 112/60 10/17/19 07:44 83 16 10/17/19 04:00 117/53 L Pulse Ox 10/17/19 11:06 95 10/17/19 09:06 10/17/19 07:46 95 10/17/19 07:44 94 L 10/17/19 04:00 Weight 273 lb 4.8 oz I/O: I/O 10/16/19 10/17/19 10/18/19 06:59 06:59 06:59 Intake Total 1080 850 Output Total 1650 950 Balance -570 -100 - Quality Measures Condition: Atrial Fibrillation/Flutter (hx or current) CV meds: Eliquis: Yes - Physical Exam General: alert & oriented x3, appears well, no apparent distress, speech clear, affect appropriate HEENT: mucus membranes moist, normocephaly Neck: supple neck, midline trachea, no JVD/HJR, no masses, no bruit, no lymphadenopathy, no thromegaly Cardiology: regular rate and rhythm, no murmur, regular rate, regular rhythm, PMI nondisplaced Lungs: clear to auscultation, normal breath sounds, no wheeze, rales, rhonchi Neurology: cranial nerve 2-12 intact, sensory function intact, no lateralizing findings Extremities: dry, strong pulses, warm, other: (groin access site stable. no hematoma, oozing or bruising) - Labs Result Diagrams: 10/16/19 03:36 10/13/19 03:57 - EKG Interpretation EKG Method: Telemetry EKG shows: Sinus rhythm - Assessment/Plan Assessment/Plan: Mr. Corado is a 74-year-old man with history of coronary artery bypass grafting and surgery and subsequent atrial fibrillation in November 2018. Transient amiodarone was discontinued in the past, but now returns with typical isthmus dependent atrial flutter. s/p EPS with CTI flutter ablation on 10/16. No additional arrhythmias were inducible. Recommend 30 days OAC with eliquis 5mg BID then ASA 81mg QD unless additional atrial arrhythmias are seen. 6 week follow up will be arranged.
--- NOTE | 2019-10-17 16:37 | DIS ---
DATE OF ADMISSION: 10/12/2019 DATE OF DISCHARGE: 10/17/2019 DISCHARGE DISPOSITION: To Home. PRIMARY DISCHARGE DIAGNOSIS: The patient is status post cavotricuspid isthmus ablation for atrial flutter done by Dr. Gianfranco Jacome on 10/16/2019. SECONDARY DISCHARGE DIAGNOSES: Coronary artery disease, chronic obstructive pulmonary disease, hypertension, dyslipidemia, and obesity. PROCEDURES DONE DURING HOSPITALIZATION: The patient has had cavotricuspid isthmus ablation done by Dr. Gianfranco Jacome on 10/16/2019. Echo with 2D Doppler showed EF of 50% to 55%, moderate concentric LVH, moderately dilated left atrium. Chest x-ray done on the day of admission showed cardiomegaly, but no infiltrate. Hemoglobin and hematocrit of 14 and 41, platelet count 228, BUN 16, creatinine 1.6, and BNP 100. DISCHARGE MEDICATIONS: 1. Albuterol inhaler q.6 hourly p.r.n. 2. Aspirin 81 mg p.o. daily. 3. Coreg 6.25 mg twice daily. 4. Breo Ellipta inhaler daily. 5. Crestor 10 mg p.o. at bedtime. 6. Entresto 24/26 mg one tablet twice daily. 7. Eliquis 5 mg twice daily for 30 days. ALLERGIES: NO KNOWN DRUG ALLERGIES. INPATIENT CONSULT: Dr. Marquez for Cardiology; Dr. Naa Medel for Electrophysiology. DISCHARGE PLAN: The patient to follow up with primary care physician, nurse practitioner, Ms. Altagracia Buckley, in 3 days. He needs to follow up with Dr. Gianfranco Jacome in 2 to [address] Marquez in 2 weeks. BRIEF COURSE DURING HOSPITALIZATION: The patient initially got admitted on the with complaints of atrial fibrillation. The patient initially was sent over from his primary care physician's office for abnormal rhythm on the EKG. He was in atrial flutter. The patient's flutter was rate controlled. He has had consultation with Dr. Marquez. He was on initially Eliquis, then switched over to Lovenox and held for ablative procedure done by Dr. Gianfranco Jacome on the . He had cavotricuspid isthmus ablation done. Post this procedure, he has remained in sinus rhythm. Prior to discharge, he is ambulating and eating well. His echo revealed normal ejection fraction with no thrombus. Please note this is a transthoracic echo. Postprocedure, he was placed on Eliquis 5 mg twice daily for a total of 30 days duration. He needs to continue all his home medications as before. He is hemodynamically stable and has been cleared by Dr. Naa Medel for discharge. Please note, I have seen and examined the patient on the day of discharge. Job ID: [id number]
--- NOTE | 2019-10-18 18:49 | ECHO ---
DATE OF SERVICE: 10/13/19 REFERRING PHYSICIAN: Dr. Marquez REASON FOR PROCEDURE: The patient is a 74-year-old male with history of coronary artery bypass grafting surgery in 11/2018 w ho has been readmitted with recurrent atrial flutter. JERARDO is performed to rule out intracardiac clot. Suboptimal anticoagulation prior to this. PROCEDURE: The patient received Propofol by Anesthesia specialist. After adequate level of sedation achieved, a standard transesophageal echocardiogram probe was passed into the esophagus without diff iculty. Patient tolerated the procedure well, no complications noted. RESULTS: Left atrium is upper normal in size about 4 cm in horizontal diameter. The left atrial appendage wel l visualized contains no clots. The left atrial appendage velocities are adequate. The interatrial s eptum is free of defect. Four out of four pulmonary veins were seen. The mitral valve has mild regur gitation only. Left ventricular systolic function is preserved. Mild LVH is noted. Chamber sizes othe rwise normal. Right sided chamber size is also normal. The pericardial space without effusion. Tricu spid valve has trace regurgitation. The aortic valve has three leaflets with trace regurgitation only . The pulmonary valve is not well visualized. The visualized portion of ascending and descending aort a without aneurysm or dissection. The visualized portion of the descending aorta with heavy but kateryna ntric nonprotruding atheroma. CONCLUSION: 1. No intracardiac clots. 2. Upper limits normal left atrial size. 3. Normal left ventricular systolic function. 4. Mild mitral regurgitation. Trace tricuspid and aortic regurgitation only. PLAN: Proceed with the ablation.
== END 2019-10-17 14:10 | disposition home or self-care (01) | DRG 274 ==
LOC: ERS 17:53 → 2NO 20:40
PROVIDERS: ADMIT Internal Medicine; ATTEND Internal Medicine
PROC: 4A023FZ Measurement of Cardiac Rhythm, Percutaneous Approach (ICD-10-PCS; principal; 2019-10-16)
PROC: 02583ZZ Destruction of Conduction Mechanism, Percutaneous Approach (ICD-10-PCS; 2019-10-16)
PROC: 4A0234Z Measurement of Cardiac Electrical Activity, Percutaneous Approach (ICD-10-PCS; 2019-10-16)
PROC: 02K83ZZ Map Conduction Mechanism, Percutaneous Approach (ICD-10-PCS; 2019-10-16)
DX: I48.3 Typical atrial flutter (principal); I25.10 Atherosclerotic heart disease of native coronary artery without angina pectoris; J44.9 Chronic obstructive pulmonary disease, unspecified; E78.5 Hyperlipidemia, unspecified; E66.9 Obesity, unspecified; N18.3 Chronic kidney disease, stage 3 (moderate); I12.9 Hypertensive chronic kidney disease with stage 1 through stage 4 chronic kidney disease, or unspecified chronic kidney disease; I25.5 Ischemic cardiomyopathy; Z68.38 Body mass index [BMI] 38.0-38.9, adult; Z95.1 Presence of aortocoronary bypass graft; Z87.891 Personal history of nicotine dependence; Z90.49 Acquired absence of other specified parts of digestive tract; Z79.899 Other long term (current) drug therapy; Z79.51 Long term (current) use of inhaled steroids; Z79.82 Long term (current) use of aspirin
CPT/HCPCS: 36415; 71045; 76942; 80048; 80053; 82550; 82553; 83735; 83880; 84484; 85014; 85018; 85025; 85049; 93005; 93306; 93312; 93613; 93621; 93623; 93653; 94640; 96361; 96374; C1730; C1732; C1769; J1265; J1644; J1650; J2001; J2370; J2704

== ENCOUNTER 2020-12-03 12:30 | Outpatient (CLI) | payer MEDICARE ==
[~2020-12-03 12:30] MED LIST changes: -ISOVUE-370 76%-LOCM 1 ML ONE; +Iopamidol 370 76% 100 ML VIAL ONE
== END 2020-12-03 12:31 | disposition home or self-care (01) ==
LOC: CT 12:30
PROVIDERS: ATTEND Internal Medicine Cardiovascular Disease
DX: I71.4 Abdominal aortic aneurysm, without rupture (principal); I70.0 Atherosclerosis of aorta; K80.20 Calculus of gallbladder without cholecystitis without obstruction
CPT/HCPCS: 74175; 82565; Q9967

== ENCOUNTER 2021-01-14 08:36 | Outpatient (CLI) | payer MEDICARE ==
[2021-01-14 12:14] LABS: #Basophils 0.1 10x3/uL (0.0-0.2); #Eosinphils 0.5 10x3/uL (0.0-0.5); #Monocytes 0.7 10x3/uL (0.0-1.1); #Neutrophils 7.7 10x3/uL (1.5-8.4); %Basophils 0.5 % (0.0-2.0); %Eosinophils 4.9 % (0.0-6.0); %Lymphocytes 16.9 % (18.0-47.0); %Monocytes 6.4 % (0.0-10.0); %Neutrophils 70.8 % (40.0-75.0); Hemoglobin 14.8 g/dL (13.5-17.5); Mean Corpuscular HGB CONC 30.3 g/dL (32.0-36.0); Mean Corpuscular Volume 92.4 fl (81.2-95.1); Mean Platelet Volume 10.2 fl (7.4-10.4); Platelet Count 296 10x3/uL (150-450); RBC Distribution Width 14.4 % (11.5-14.5); Red Blood Cell (RBC) Count 5.29 10x6/uL (4.32-5.72); White Blood Cell (WBC) Count 10.8 10x3/uL (3.5-10.5)
[2021-01-14 13:09] LABS: ALT (SGPT) 31 U/L (8-55); AST (SGOT) 23 U/L (5-34); Albumin 4.4 g/dL (3.4-4.8); Alkaline Phosphatase 112 U/L (40-110); Anion Gap 16 mmol/L (10-20); BUN (Urea Nitrogen) 18 mg/dL (8.4-25.7); Bilirubin, Total 0.6 mg/dL (0.2-1.2); Calc. Creatinine Clearance 0 mL/min (70-130); Calcium 9.3 mg/dL (7.8-10.44); Carbon Dioxide 25 mmol/L (23-31); Chloride 102 mmol/L (98-107); Globulin 2.6 g/dL (2.4-3.5); Glucose 136 mg/dL (83-110); Potassium 4.7 mmol/L (3.5-5.1); Sodium 138 mmol/L (136-145)
[2021-01-14 20:26] LABS: SARS-CoV-2 PCR by NAA Not Detected (NotDetected)
== END 2021-01-14 08:37 | disposition home or self-care (01) ==
LOC: LABBT 08:36
PROVIDERS: ATTEND Internal Medicine Cardiovascular Disease
DX: Z01.812 Encounter for preprocedural laboratory examination (principal); Z20.822 Contact with and (suspected) exposure to COVID-19
CPT/HCPCS: 80053; 85025; U0003; U0005; 87635

== ENCOUNTER 2021-01-16 13:39 | Outpatient (CLI) | payer MEDICARE ==
[2021-01-17 01:35] LABS: SARS-CoV-2 PCR by NAA Not Detected (NotDetected)
== END 2021-01-16 13:40 | disposition home or self-care (01) ==
LOC: LABBT 13:39
PROVIDERS: ATTEND Internal Medicine Cardiovascular Disease
DX: Z01.812 Encounter for preprocedural laboratory examination (principal); Z20.822 Contact with and (suspected) exposure to COVID-19
CPT/HCPCS: U0003; U0005; 87635

== ENCOUNTER 2021-01-20 05:48 | Day surgery (SDC) | payer MEDICARE ==
[2021-01-17 09:19] VITALS: BMI 37.6
[2021-01-20 07:16] LABS: Anion Gap 13 mmol/L (10-20); BUN (Urea Nitrogen) 13 mg/dL (8.4-25.7); Calc. Creatinine Clearance 70 mL/min (70-130); Calcium 9.6 mg/dL (7.8-10.44); Carbon Dioxide 26 mmol/L (23-31); Cardiac Risk 4.5 (Less than 4.5); Chloride 104 mmol/L (98-107); Cholesterol 135 mg/dl (< 200 Desired); Glucose 147 mg/dL (83-110); HDL Cholesterol 30 mg/dL (>60 Neg Risk); LDL Cholesterol, Calculated 83 mg/dL; Sodium 139 mmol/L (136-145); Triglycerides 110 mg/dL (Less than 150)
[2021-01-20] MEDS ORDERED: Lidocaine 1% (PF) 30 ML VIAL ONE (08:59)
[2021-01-20] MEDS ORDERED: Midazolam HCl 2 mg/2 ml Vial ONE (09:18)
[2021-01-20] MEDS ORDERED: Fentanyl 100 MCG/2 ML VIAL ONE (09:18)
[2021-01-20] MEDS ORDERED: Nitroglycerin 100MG/250ML BOT 0 ML ONE (09:48)
[2021-01-20] MEDS ORDERED: Heparin 10,000 UNITS/ 10 ML VIAL ONE (09:48)
[2021-01-20] MEDS ORDERED: Iopamidol 370 76% 100 ML VIAL ONE (10:54)
== END 2021-01-20 13:15 | disposition home or self-care (01) ==
LOC: SDC 05:48
PROVIDERS: ATTEND Internal Medicine Cardiovascular Disease
PROC: 4A023N7 Measurement of Cardiac Sampling and Pressure, Left Heart, Percutaneous Approach (ICD-10-PCS; principal; 2021-01-20)
PROC: B2111ZZ Fluoroscopy of Multiple Coronary Arteries using Low Osmolar Contrast (ICD-10-PCS; 2021-01-20)
PROC: B2181ZZ Fluoroscopy of Left Internal Mammary Bypass Graft using Low Osmolar Contrast (ICD-10-PCS; 2021-01-20)
PROC: B2131ZZ Fluoroscopy of Multiple Coronary Artery Bypass Grafts using Low Osmolar Contrast (ICD-10-PCS; 2021-01-20)
DX: T82.858A Stenosis of other vascular prosthetic devices, implants and grafts, initial encounter (principal); I25.10 Atherosclerotic heart disease of native coronary artery without angina pectoris; I25.82 Chronic total occlusion of coronary artery; I42.0 Dilated cardiomyopathy; I11.0 Hypertensive heart disease with heart failure; I50.9 Heart failure, unspecified; I48.3 Typical atrial flutter; E78.5 Hyperlipidemia, unspecified; J44.9 Chronic obstructive pulmonary disease, unspecified; I71.4 Abdominal aortic aneurysm, without rupture; Z87.891 Personal history of nicotine dependence; Z79.01 Long term (current) use of anticoagulants; Z79.82 Long term (current) use of aspirin; Z79.899 Other long term (current) drug therapy
CPT/HCPCS: 36415; 76942; 80048; 80061; 93459; 99152; 99153; J1644; J2001; J2250; J3010; Q9967